=== PATIENT | male | born 1980 | race Caucasian/White ===

== ENCOUNTER 2022-11-16 10:36 | Inpatient (IN) ==
[2022-11-16] MEDS ORDERED: SODIUM CHLORIDE 0.9% 1000ML 1,000 ML IV SCH (11:27)
[2022-11-16 12:42] LABS: Basophils # (auto) 0.03 K/uL (0-0.2); Basophils % (auto) 0.7 %; Eosinophils % (auto) 2.5 %; Hematocrit (blood only) 40.1 % (42.0-52.0); Hemoglobin 13.7 g/dl (14.0-18.0); Immature Granulocytes # (auto) 0.03 K/uL (0.01-0.20); Immature Granulocytes % (auto) 0.7 %; Lymphocytes % (auto) 34.4 %; Mean Corpuscular Hemoglobin 29.7 pg (25.0-34.0); Mean Corpuscular Hgb Conc 34.2 g/dL (32.0-36.0); Mean Platelet Volume 9.6 fL (9.4-12.4); Monocytes # (auto) 0.44 K/uL (0.11-0.59); Monocytes % (auto) 10.8 %; Neutrophils # (auto) 2.07 K/uL (1.40-6.50); Neutrophils % (auto) 50.9 %; Platelet Count 165 K/uL (130-400); RDW Coefficient of Variation 13.5 % (11.5-14.5); RDW Standard Deviation 41.9 fL (36.4-46.3); Red Blood Count 4.61 M/uL (4.70-6.10); White Blood Count 4.07 K/ul (4.8-10.8)
[2022-11-16 12:59] LABS: BUN Creatinine Ratio 8.9 (10-20); Bilirubin Direct 0.1 mg/dl (0-0.2); Bilirubin,Total 0.5 mg/dl (0.2-1.0); Calcium 9.2 mg/dl (8.6-10.3); Creatinine Clr Calc Pharmacy 164.9 ml/min; Est GFR (African American) 129.3 ml/min; Est GFR (Non-African American) 111.5 ml/min; Magnesium 2.1 mg/dl (1.7-2.4); Potassium 3.8 mmol/L (3.5-5.1); Total Protein 7.7 gm/dl (6.0-8.3)
[2022-11-16 13:05] LABS: Troponin I High Sensitivity 4.5 pg/ml (0-20)
[2022-11-16 13:11] LABS: INR 1.1 (0.9-1.1); Prothrombin Time 11.9 Seconds (9.0-12.0)
[2022-11-16] MEDS ORDERED: VANCOMYCIN HCL 2,500 MG in SODIUM CHLORIDE 0.9% 500 ML IV ONE (13:15)
[2022-11-16] MEDS ORDERED: CEFEPIME 20 ML IV ONE (13:15)
[2022-11-16] MEDS ORDERED: OPTIRAY 320 500ml IV ONE (13:41)
--- NOTE | 2022-11-16 13:57 | CT Scan Report ---
UNENHANCED CT OF THE BRAIN; CT VENOGRAM OF THE BRAIN CLINICAL HISTORY: Headache. Bacteremia. COMPARISON STUDY: No priors. TECHNIQUE: Unenhanced axial CT scan of the brain is performed from the vertex to the skull base. Subs equently, following the IV administration of 115 cc of Optiray [address] venogram of the brain is perf ormed. 3-D MIPS images are created and assessed. IV contrast was administered without complication. A dose lowering technique was utilized adhering to the principles of ALARA. FINDINGS: Brain parenchyma: The brain parenchyma is normal in appearance. There is no hemorrhage, mass effect, or evidence of acute territorial ischemia by CT criteria. There is no evidence of enhancing mass lesi on on the postcontrast images. Lowe-white matter differentiation is preserved. No extra-axial fluid c ollection is seen. Ventricles, sulci, cisterns: Normal in configuration. Venous sinuses: There is no evidence of venous sinus thrombosis. The superior sagittal sinus is paten t, as are the transverse and sigmoid sinuses. Imaged portions of the internal jugular veins are clear . The inferior sagittal sinus and straight sinus are clear. Intracranial vasculature: The intracranial arteries are patent at the skull base. Calvarium: Unremarkable. Sinuses and mastoids: Retention cysts within the maxillary antra measure up to 12 mm. The paranasal s inuses are otherwise clear. The mastoid air cells are well pneumatized. Orbits: The bony orbits are intact. Orbital contents are normal as visualized. IMPRESSION: 1. No acute intracranial abnormality. 2. Normal CT venogram of the brain. ACT 112: Negative or not required by law. Electronically signed by: Nils Baldwin M.D. 11/16/2022 1:55 PM
--- NOTE | 2022-11-16 14:07 | XRay Report ---
SINGLE VIEW CHEST CLINICAL HISTORY: Sepsis FINDINGS: An AP, portable, upright chest radiograph is obtained. No prior studies are available for c omparison at the time of dictation. The cardiomediastinal silhouette is top normal for projection. Th ere is mild elevation of the right hemidiaphragm and bibasilar atelectasis. No airspace consolidation or pleural effusion is identified. No pneumothorax is seen. The bony thorax is grossly intact. IMPRESSION: No active disease in the chest. ACT 112: Negative or not required by law. Electronically signed by: Nils Baldwin M.D. 11/16/2022 2:05 PM
--- NOTE | 2022-11-16 14:09 | Emergency Department Note ---
Impression & Plan Bacteremia, Intravenous drug abuse, Intermittent fever, Mediastinal lymphadenopathy, Cellulitis of clavicular region ED Provider Note NAME: KAYODE MAGALLON AGE: 42 SEX: M ARRIVES VIA: Walk-In INFORMANT: Patient ED PROVIDER(S): Bartolo Hobbs MD CHIEF COMPLAINT: Bacteremia, referred PLAN: Disposition: Admit MEDICAL DECISION MAKING: The patient is a 42-year-old gentleman with a past medical history of IV drug abuse who presents to the emergency department for reevaluation after he was called back due to 1 out of 4 positive blood cultures from his emergency department visit on 11/13 in the setting of having 4/4 positive blood cultures for bacillus species from an emergency department visit at [facility] on 11/11. The patient had unremarkable CT imaging of the abdomen pelvis at [facility] and here on his recent visit. He had a leukocytosis of 14,000 on Friday however had no leukocytosis on 11/13 at our facility. The patient reports he has had fluctuating symptoms of abdominal pain, chest pain, shortness of breath, nausea and fevers lasting up to a week over the past several weeks. He reports he did relapse and has been using IV drugs where he injected in the left side of his neck several weeks ago. Per review of records and the patient's knowledge he has not been treated been treated with antibiotics. On arrival the patient is well-appearing in no acute distress, afebrile stable vital signs. Small ~1-2 cm area of ecchymosis of the left lower neck without surrounding erythema. No crepitus. EKG without overt acute ischemia. CXR negative for acute cardiopulmonary process. WBC 4K nonspecific. H/H similar to prior. Platelets within normal limits. Chemistry without metabolic acidosis. Electrolytes and LFTs unremarkable. La ctic acid 1.0, within normal limits. High-sensitivity troponin 4.5, within normal limits. Procalcitonin is nonelevated. COVID-19 RNA, DICK test was negative. Repeat blood cultures obtained and the patient was treated empirically with cefepime and vancomycin. CT imaging pending. Case was discussed with Dr. Alaniz, [facility] hospitalist, who will evaluate the patient for admission following CT results. Subsequently, CT of the head and CT venogram of the head negative for acute or maladies. CT soft tissue neck demonstrates small 2 cm ill-defined subcutaneous infiltration which correlates to the patient's injection site. CTA of the chest negative for PE or pneumonia but does demonstrate nonspecific mediastinal and hilar lymphadenopathy. Splenomegaly is noted. Further management per admitting team. Triage Nursing notes reviewed and agree them. Prior/outside medical records reviewed Vital Signs: reviewed Differential diagnosis: Viral syndrome, otitis, pharyngitis, pneumonia, influenza, meningitis, urinary tract infection, sepsis, bacteremia, as well as other pathologies. ER treatment provided: See below. Diagnostics interpreted by me: ECG: Normal sinus rhythm, 61 bpm, LVH, nonspecific T wave abnormality, no overt ST elevation or depression, QTc 438, cures 70 Cardiac Monitoring: An order for continuous cardiac monitoring was placed and demonstrated Normal sinus rhythm, 61 bpm, no ectopy. Laboratory studies: See below Imaging studies: See below Consultation(s): Case was discussed with Dr. Alaniz, [facility] hospitalist, who will evaluate the patient for admission. HPI: The patient is a 42-year-old gentleman with a past medical history of IV drug abuse who presents to the emergency department for reevaluation after he was called back due to 1 out of 4 positive blood cultures from his emergency department visit on 11/13 in the setting of having 4/4 positive blood cultures for bacillus species from an emergency department visit at [facility] on 11/11. The patient had unremarkable CT imaging of the abdomen pelvis at [facility] and here on his recent visit. He had a leukocytosis of 14,000 on Friday however had no leukocytosis on 11/13 at our facility. The patient reports he has had fluctuating symptoms of abdominal pain, chest pain, shortness of breath, nausea and fevers lasting up to a week over the past several weeks. He reports he did relapse and has been using IV drugs where he injected in the left side of his neck several weeks ago. Per review of records and the patient's knowledge he has not been treated been treated with antibiotics. ROS: See above HPI for pertinent positives & negatives. A total of 10 systems reviewed and were otherwise negative. VITALS:See Below PHYSICAL EXAMINATION: GENERAL: Awake, alert, well-appearing, in no distress HENT: Normocephalic, atraumatic. Oropharynx unremarkable. EYES: Normal conjunctiva. Sclera non-icteric. NECK: Supple. No nuchal rigidity. FROM. No JVD. Small 1 cm area of ecchymosis of the left lower neck without surrounding erythema. RESPIRATORY: Clear to auscultation. CARDIAC: Regular rate, normal rhythm. Extremities warm and well perfused. Pulses equal. ABDOMEN: Soft, non-distended. No tenderness to palpation. No rebound or guarding . No masses. RECTAL: Deferred. MUSCULOSKELETAL: Chest examination reveals no tenderness. The back is symmetrical on inspection without obvious abnormality. There is no CVA tenderness to palpation. No joint edema. LOWER EXTREMITIES: Calves are equal size bilaterally and non-tender. No edema. No discoloration. NEURO: Normal sensorium. No sensory or motor deficits noted. SKIN: No rash or jaundice noted. ED COURSE: Critical Care: I have personally spent greater than 35 minutes of critical care time in the direct management of this patient. This includes bedside care, interpretation of diagnostic studies, and testing, discussion with consultants, patient, and family members, and other required patient management activities. This 35 minutes is in excess of all separately billable procedures. Bartolo Hobbs MD Past Med/Surg History Medical History IV drug abuse Family History Other Family history non-contributory Social History Smoking Status: Former smoker Tobacco Type: Smokeless Tobacco (Dip or Chew) Do You Dip or Chew Tobacco: Yes; Hx Alcohol Use: No Hx Substance Use: Yes Substance Use Type Other:: Sporadic marijuana use Preferred Language: Surinamese Transition Mgr Rn Required: No Beliefs That Will Affect Care: None Current Living Situation: Alone Other Information That Helps Us Care for You: No Feels Safe at Home: Yes Assistive Devices: None Allergies Allergies Allergy/AdvReac Type Severity Reaction Status Date / Time ciprofloxacin [From Cipro] Allergy Unknown Unverified 11/16/22 13:43 Home Meds Home Medications Medication Instructions Recorded Confirmed methadone 40 mg soluble tablet 130 mg PO DAILY 11/13/22 11/16/22 apixaban 5 mg tablet (Eliquis) 5 mg PO BID 11/16/22 11/16/22 famotidine 40 mg tablet 40 mg PO HS 11/16/22 11/16/22 gabapentin 300 mg capsule 300 mg PO TID 11/16/22 11/16/22 paroxetine HCl 40 mg tablet 40 mg PO DAILY 11/16/22 11/16/22 trazodone 100 mg tablet 100 mg PO HS 11/16/22 11/16/22 Results & Data (ED) Vital Signs Vital Signs - 24 hr 11/16/22 11:00 11/16/22 12:04 11/16/22 13:11 Temperature 36.0 C L Temperature Source Temporal Artery Scan Pulse Rate 73 64 Pulse Rate [Apical] 54 L Pulse Rhythm [Apical] Regular Pulse Strength [Apical] Normal Respiratory Rate 20 20 Respiratory Effort / Characteristics Non-Labored Spontaneous Non-Labored Respiratory Depth Normal Normal Respiratory Pattern Regular Blood Pressure 155/94 H Blood Pressure [Right Arm] 130/83 Blood Pressure Mean 114 Blood Pressure Mean [Right Arm] 98 Pulse Oximetry 95 96 Oxygen Delivery Method Room Air Room Air Sepsis Recent Fever Within 48 Hours No Sepsis New/Unexplained Change in Mental Status No Sepsis Action Taken by Nursing No Action Required 11/16/22 13:19 11/16/22 12:04 11/16/22 12:30 Temperature Temperature Source Pulse Rate 66 60 Pulse Rate [Apical] Pulse Rhythm [Apical] Pulse Strength [Apical] Respiratory Rate 19 25 H Respiratory Effort / Characteristics Respiratory Depth Respiratory Pattern Blood Pressure Blood Pressure [Right Arm] Blood Pressure Mean Blood Pressure Mean [Right Arm] Pulse Oximetry 96 Oxygen Delivery Method Room Air Sepsis Recent Fever Within 48 Hours Sepsis New/Unexplained Change in Mental Status Sepsis Action Taken by Nursing 11/16/22 12:59 11/16/22 12:59 11/16/22 13:00 Temperature Temperature Source Pulse Rate 58 L 74 Pulse Rate [Apical] Pulse Rhythm [Apical] Pulse Strength [Apical] Respiratory Rate 20 13 Respiratory Effort / Characteristics Respiratory Depth Respiratory Pattern Blood Pressure 130/83 Blood Pressure [Right Arm] Blood Pressure Mean 98 Blood Pressure Mean [Right Arm] Pulse Oximetry Oxygen Delivery Method Sepsis Recent Fever Within 48 Hours Sepsis New/Unexplained Change in Mental Status Sepsis Action Taken by Nursing Laboratory Data Attestation: I reviewed the patient's lab results. 11/16/22 12:10 11/16/22 12:10 Lab Results 11/16/22 11/16/22 11/16/22 Range/Units 11:34 12:10 12:10 WBC 4.07 L (4.8-10.8) K/ul RBC 4.61 L (4.70-6.10) M/uL Hgb 13.7 L (14.0-18.0) g/dl Hct 40.1 L (42.0-52.0) % MCV 87.0 (80.0-100.0) fL MCH 29.7 (25.0-34.0) pg MCHC 34.2 (32.0-36.0) g/dL RDW Std Deviation 41.9 (36.4-46.3) fL RDW Coeff of Isabella 13.5 (11.5-14.5) % Plt Count 165 (130-400) K/uL MPV 9.6 (9.4-12.4) fL Immature Gran % (Auto) 0.7 % Neut % (Auto) 50.9 % Lymph % (Auto) 34.4 % Imperial % (Auto) 10.8 % Eos % (Auto) 2.5 % Baso % (Auto) 0.7 % Neut # (Auto) 2.07 (1.40-6.50) K/uL Lymph # (Auto) 1.40 (1.2-3.4) K/uL Imperial # (Auto) 0.44 (0.11-0.59) K/uL Eos # (Auto) 0.10 (0-0.50) K/uL Baso # (Auto) 0.03 (0-0.2) K/uL Immature Gran # (Auto) 0.03 (0.01-0.20) K/uL PT 11.9 (9.0-12.0) Seconds INR 1.1 (0.9-1.1) Sodium (136-145) mmol/L Potassium (3.5-5.1) mmol/L Chloride (98-107) mmol/L Carbon Dioxide (21-32) mmol/L Anion Gap (3-11) BUN (6-23) mg/dl Creatinine (0.6-1.4) mg/dl Est Cr Clr Drug Dosing ml/min Est GFR ( Amer) ml/min Est GFR (Non-Af Amer) ml/min BUN/Creatinine Ratio (10-20) Glucose (70-99(Fasting)) mg/dl Lactate (0.4-2.0) mmol/L Calcium (8.6-10.3) mg/dl Magnesium (1.7-2.4) mg/dl Total Bilirubin (0.2-1.0) mg/dl Direct Bilirubin (0-0.2) mg/dl AST (13-39) U/L ALT (7-52) U/L Alkaline Phosphatase (34-104) U/L Troponin I High Sens (0-20) pg/ml Total Protein (6.0-8.3) gm/dl Albumin (3.4-5.0) gm/dl Lipase (11-82) U/L Procalcitonin (0-0.5) ng/ml SARS-CoV-2, RNA, NAAT NEGATIVE (NEGATIVE) 11/16/22 11/16/22 11/16/22 Range/Units 12:10 12:10 12:10 WBC (4.8-10.8) K/ul RBC (4.70-6.10) M/uL Hgb (14.0-18.0) g/dl Hct (42.0-52.0) % MCV (80.0-100.0) fL MCH (25.0-34.0) pg MCHC (32.0-36.0) g/dL RDW Std Deviation (36.4-46.3) fL RDW Coeff of Isabella (11.5-14.5) % Plt Count (130-400) K/uL MPV (9.4-12.4) fL Immature Gran % (Auto) % Neut % (Auto) % Lymph % (Auto) % Imperial % (Auto) % Eos % (Auto) % Baso % (Auto) % Neut # (Auto) (1.40-6.50) K/uL Lymph # (Auto) (1.2-3.4) K/uL Imperial # (Auto) (0.11-0.59) K/uL Eos # (Auto) (0-0.50) K/uL Baso # (Auto) (0-0.2) K/uL Immature Gran # (Auto) (0.01-0.20) K/uL PT (9.0-12.0) Seconds INR (0.9-1.1) Sodium 139 (136-145) mmol/L Potassium 3.8 (3.5-5.1) mmol/L Chloride 104 (98-107) mmol/L Carbon Dioxide 28 (21-32) mmol/L Anion Gap 7 (3-11) BUN 7 (6-23) mg/dl Creatinine 0.79 (0.6-1.4) mg/dl Est Cr Clr Drug Dosing 164.9 ml/min Est GFR ( Amer) 129.3 ml/min Est GFR (Non-Af Amer) 111.5 ml/min BUN/Creatinine Ratio 8.9 L (10-20) Glucose 86 (70-99(Fasting)) mg/dl Lactate 1.0 (0.4-2.0) mmol/L Calcium 9.2 (8.6-10.3) mg/dl Magnesium 2.1 (1.7-2.4) mg/dl Total Bilirubin 0.5 (0.2-1.0) mg/dl Direct Bilirubin 0.1 (0-0.2) mg/dl AST 26 (13-39) U/L ALT 21 (7-52) U/L Alkaline Phosphatase 46 (34-104) U/L Troponin I High Sens 4.5 (0-20) pg/ml Total Protein 7.7 (6.0-8.3) gm/dl Albumin 4.0 (3.4-5.0) gm/dl Lipase 8 L (11-82) U/L Procalcitonin 0.07 (0-0.5) ng/ml SARS-CoV-2, RNA, NAAT (NEGATIVE) Administered Medications Apixaban (Apixaban 5 Mg Tablet) 5 mg PO BID TREVOR Stop: 12/16/22 20:59 Last Admin: 11/16/22 20:25 Dose: 5 mg Documented By: FERNANDO Famotidine (Famotidine 40 Mg Tablet) 40 mg PO HS TREVOR Stop: 12/16/22 20:59 Last Admin: 11/16/22 20:25 Dose: 40 mg Documented By: FERNANDO Gabapentin (Gabapentin 300 Mg Cap) 300 mg PO TID TREVOR Stop: 12/16/22 20:59 Last Admin: 11/16/22 20:25 Dose: 300 mg Documented By: FERNANDO Cefepime HCl 2,000 mg/ Syringe 20 mls @ 5 mls/min IV Q8H TREVOR; Protocol Stop: 11/30/22 20:59 Last Admin: 11/16/22 20:24 Dose: 5 mls/min Documented By: FERNANDO Vancomycin HCl 1,500 mg/ (Sodium Chloride) 530 mls @ 200 mls/hr IV Q12H TREVOR; Protocol Stop: 12/01/22 00:00 Last Admin: 11/16/22 23:43 Dose: 200 mls/hr Documented By: FERNANDO Trazodone HCl (Trazodone Hcl 100 Mg Tab) 100 mg PO HS TREVOR Stop: 12/16/22 20:59 Last Admin: 11/16/22 20:24 Dose: 100 mg Documented By: FERNANDO Discontinued Medications Sodium Chloride (Nss 1000ml) 1,000 mls @ 999 mls/hr IV .Q1H1M TREVOR Stop: 11/16/22 12:27 Last Infusion: 11/16/22 15:00 Dose: 0 mls/hr Documented By: Admin: 11/16/22 12:40 Dose: 999 mls/hr Documented By: YESENIA Vancomycin HCl 2,500 mg/ (Sodium Chloride) 550 mls @ 180 mls/hr IV NOW ONE Stop: 11/16/22 16:18 Last Infusion: 11/16/22 17:33 Dose: 0 mls/hr Documented By: Admin: 11/16/22 14:29 Dose: 180 mls/hr Documented By: YESENIA Cefepime HCl (Maxipime) 20 mls @ 5 mls/min IV NOW ONE Stop: 11/16/22 13:18 Last Admin: 11/16/22 13:15 Dose: 5 mls/min Documented By: JERADK Ioversol (Optiray 320 500ml) 115 ml IV ONCE ONE Stop: 11/16/22 13:42 Last Admin: 11/16/22 13:41 Dose: 115 ml Documented By: KAITLINK Imaging Data Radiologist's Impression: Chest X-Ray 11/16/22 11:26 SINGLE VIEW CHEST CLINICAL HISTORY: Sepsis FINDINGS: An AP, portable, upright chest radiograph is obtained. No prior studies are available for comparison at the time of dictation. The cardiomediastinal silhouette is top normal for projection. There is mild elevation of the right hemidiaphragm and bibasilar atelectasis. No airspace consolidation or pleural effusion is identified. No pneumothorax is seen. The bony thorax is grossly intact. IMPRESSION: No active disease in the chest. ACT 112: Negative or not required by law. Electronically signed by: Nils Baldwin M.D. 11/16/2022 2:05 PM Chest CTA 11/16/22 11:45 CT ANGIOGRAM OF THE CHEST CLINICAL HISTORY: Atypical chest pain. Bacteremia. COMPARISON STUDY: Chest x-ray performed the same day at 11/16/2022. TECHNIQUE: Following the IV administration of 115 cc of Optiray 320, CT angiogram of the chest was performed from the upper abdomen to the thoracic inlet utilizing the pulmonary embolus protocol. Images are reviewed in the axial, sagittal, and coronal planes. 3-D MIPS images are created and assessed. IV contrast was administered without complication. A dose lowering technique was utilized adhering to the principles of ALARA. There is streak artifact from the arms which could not be elevated above the chest. CT DOSE: 2392.10 mGy.cm FINDINGS: Thyroid: Imaged portions of the thyroid gland are normal in size and attenuation. Thoracic aorta: The thoracic aorta is normal in caliber and demonstrates standard 3-vessel arch anatomy. No dissection is seen. Pulmonary vasculature: The pulmonary trunk is normal in caliber. There are no filling defects identified in main, lobar, or segmental pulmonary branches to suggest pulmonary embolus. Heart: The heart is normal in size and without pericardial effusion. Lungs and pleural spaces: There is no airspace consolidation typical for pneumonia or pleural effusion. Dependent atelectasis is noted at the lung bases. The trachea and central airways are clear. Mediastinum: There are mildly enlarged mediastinal lymph nodes which measure up to 11 mm short axis. Chrystal: There are mildly enlarged hilar lymph nodes which measure up to 12 mm in short axis. Axillae: There is no axillary lymphadenopathy. Upper abdomen: The spleen is enlarged measuring 16.8 cm in length. There is a tiny hiatal hernia. The liver appears stated ptotic. Nodularity of the hepatic surface contour suggests morphologic change of cirrhosis. Skeletal structures: No lytic or blastic bony lesions are seen. IMPRESSION: 1. There is no evidence of pulmonary embolus in the main, lobar, or segmental pulmonary arteries. 2. There is no airspace consolidation or pleural effusion. 3. Mildly enlarged mediastinal and hilar lymph nodes are nonspecific. 4. Splenomegaly. 5. The liver is steatotic, and nodularity of the surface contour suggests morphologic change of cirrhosis. 6. Additional findings as above. ACT 112: Negative or not required by law. Electronically signed by: Nils Baldwin M.D. 11/16/2022 2:[address] 11/16/22 11:[address] OF THE BRAIN; CT VENOGRAM OF THE BRAIN CLINICAL HISTORY: Headache. Bacteremia. COMPARISON STUDY: No priors. TECHNIQUE: Unenhanced axial CT scan of the brain is performed from the vertex to the skull base. Subsequently, following the IV administration of 115 cc of Optiray [address] venogram of the brain is performed. 3-D MIPS images are created and assessed. IV contrast was administered without complication. A dose lowering technique was utilized adhering to the principles of ALARA. FINDINGS: Brain parenchyma: The brain parenchyma is normal in appearance. There is no hemorrhage, mass effect, or evidence of acute territorial ischemia by CT criteria. There is no evidence of enhancing mass lesion on the postcontrast images. Lowe-white matter differentiation is preserved. No extra-axial fluid collection is seen. Ventricles, sulci, cisterns: Normal in configuration. Venous sinuses: There is no evidence of venous sinus thrombosis. The superior sagittal sinus is patent, as are the transverse and sigmoid sinuses. Imaged portions of the internal jugular veins are clear. The inferior sagittal sinus and straight sinus are clear. Intracranial vasculature: The intracranial arteries are patent at the skull base. Calvarium: Unremarkable. Sinuses and mastoids: Retention cysts within the maxillary antra measure up to 12 mm. The paranasal sinuses are otherwise clear. The mastoid air cells are well pneumatized. Orbits: The bony orbits are intact. Orbital contents are normal as visualized. IMPRESSION: 1. No acute intracranial abnormality. 2. Normal CT venogram of the brain. ACT 112: Negative or not required by law. Electronically signed by: Nils Baldwin M.D. 11/16/2022 1:55 PM [address] Tissue Neck CT 11/16/22 11:45 CT SCAN OF THE NECK WITH IV CONTRAST CLINICAL HISTORY: Bacteremia. Left-sided neck pain. COMPARISON STUDY: No priors. TECHNIQUE: Following the IV administration of 115 cc of Optiray 320, CT scan of the soft tissues of the neck was performed from the skull base to the upper chest. Images are reviewed in the axial, sagittal, and coronal planes. IV contrast was administered without complication. A dose lowering technique was utilized adhering to the principles of ALARA. FINDINGS: Soft tissues: As a 2.2 cm ill-defined focus of subcutaneous soft tissue infiltration at the dermal surface in the left supraclavicular soft tissues deep to the marker at the site of interest. No organized fluid collection is identified. Pharynx: The pharyngeal soft tissues are normal as visualized. The pharyngeal airway is widely patent. There is no evidence of mass lesion. The vocal cords are symmetric. The parapharyngeal fat is well maintained. The prevertebral/retropharyngeal soft tissues are within normal limits. Epiglottis is normal. Lymphadenopathy: Mildly enlarged lymph nodes in the superior mediastinum measure up to 12 mm short axis. No cervical lymphadenopathy is seen Thyroid: Normal in size and attenuation. Salivary glands: The parotid and submandibular glands are within normal limits. Brain parenchyma: The visualized brain parenchyma at the skull base is normal in appearance. Vascular structures: The carotid arteries and jugular veins are patent bilaterally. Skeletal structures: Imaged portions of the calvarium at the skull base are within normal limits. The cervical spine appears intact. The patient is edentulous. Orbits: The bony orbits are intact. Orbital contents are normal as imaged. Sinuses and mastoids: Retention cysts in the maxillary antra measure up to 12 mm. The visualized paranasal sinuses are otherwise clear. The mastoid air cells are well pneumatized. Lung apices: Visualized apical lung parenchyma is clear. IMPRESSION: 1. There is a 2.2 cm focus of ill-defined subcutaneous infiltration at the dermal surface in the left supraclavicular soft tissues deep to the marker at the site of interest. This likely represents inflammation/cellulitis. Clinical correlation the required and clinical follow-up to resolution is recommended. 2. There is no drainable fluid collection. 3. The pharyngeal soft tissues are normal as imaged. 4. Mildly enlarged mediastinal lymph nodes are seen in the superior mediastinum. 5. Additional findings as above. ACT 112: Negative or not required by law. Electronically signed by: Nils Baldwin M.D. 11/16/2022 2:[address] 11/16/22 11:[address] OF THE BRAIN; CT VENOGRAM OF THE BRAIN CLINICAL HISTORY: Headache. Bacteremia. COMPARISON STUDY: No priors. TECHNIQUE: Unenhanced axial CT scan of the brain is performed from the vertex to the skull base. Subsequently, following the IV administration of 115 cc of Optiray [address] venogram of the brain is performed. 3-D MIPS images are created and assessed. IV contrast was administered without complication. A dose lowering technique was utilized adhering to the principles of ALARA. FINDINGS: Brain parenchyma: The brain parenchyma is normal in appearance. There is no hemorrhage, mass effect, or evidence of acute territorial ischemia by CT criteria. There is no evidence of enhancing mass lesion on the postcontrast images. Lowe-white matter differentiation is preserved. No extra-axial fluid collection is seen. Ventricles, sulci, cisterns: Normal in configuration. Venous sinuses: There is no evidence of venous sinus thrombosis. The superior sagittal sinus is patent, as are the transverse and sigmoid sinuses. Imaged portions of the internal jugular veins are clear. The inferior sagittal sinus and straight sinus are clear. Intracranial vasculature: The intracranial arteries are patent at the skull base. Calvarium: Unremarkable. Sinuses and mastoids: Retention cysts within the maxillary antra measure up to 12 mm. The paranasal sinuses are otherwise clear. The mastoid air cells are well pneumatized. Orbits: The bony orbits are intact. Orbital contents are normal as visualized. IMPRESSION: 1. No acute intracranial abnormality. 2. Normal CT venogram of the brain. ACT 112: Negative or not required by law. Electronically signed by: Nils Baldwin M.D. 11/16/2022 1:55 PM Discharge Plan Visit Data Chief Complaint: Referred by Doctor Stated Complaint: REF BY DOC ED Provider: Bartolo Hobbs Discharge Problem: Bacteremia, Intravenous drug abuse, Intermittent fever, Mediastinal lym phadenopathy, Cellulitis of clavicular region Patient Disposition: Admitted As Inpatient Discharge Instructions Interventions: ED Discharge Assessment Last Done: 11/16/22 16:28
--- NOTE | 2022-11-16 14:34 | CT Scan Report ---
CT ANGIOGRAM OF THE CHEST CLINICAL HISTORY: Atypical chest pain. Bacteremia. COMPARISON STUDY: Chest x-ray performed the same day at 11/16/2022. TECHNIQUE: Following the IV administration of 115 cc of Optiray 320, CT angiogram of the chest was pe rformed from the upper abdomen to the thoracic inlet utilizing the pulmonary embolus protocol. Images are reviewed in the axial, sagittal, and coronal planes. 3-D MIPS images are created and assessed. I V contrast was administered without complication. A dose lowering technique was utilized adhering to the principles of ALARA. There is streak artifact from the arms which could not be elevated above th e chest. CT DOSE: 2392.10 mGy.cm FINDINGS: Thyroid: Imaged portions of the thyroid gland are normal in size and attenuation. Thoracic aorta: The thoracic aorta is normal in caliber and demonstrates standard 3-vessel arch anato my. No dissection is seen. Pulmonary vasculature: The pulmonary trunk is normal in caliber. There are no filling defects identif ied in main, lobar, or segmental pulmonary branches to suggest pulmonary embolus. Heart: The heart is normal in size and without pericardial effusion. Lungs and pleural spaces: There is no airspace consolidation typical for pneumonia or pleural effusio n. Dependent atelectasis is noted at the lung bases. The trachea and central airways are clear. Mediastinum: There are mildly enlarged mediastinal lymph nodes which measure up to 11 mm short axis. Chrystal: There are mildly enlarged hilar lymph nodes which measure up to 12 mm in short axis. Axillae: There is no axillary lymphadenopathy. Upper abdomen: The spleen is enlarged measuring 16.8 cm in length. There is a tiny hiatal hernia. The liver appears stated ptotic. Nodularity of the hepatic surface contour suggests morphologic change o f cirrhosis. Skeletal structures: No lytic or blastic bony lesions are seen. IMPRESSION: 1. There is no evidence of pulmonary embolus in the main, lobar, or segmental pulmonary arteries. 2. There is no airspace consolidation or pleural effusion. 3. Mildly enlarged mediastinal and hilar lymph nodes are nonspecific. 4. Splenomegaly. 5. The liver is steatotic, and nodularity of the surface contour suggests morphologic change of cirrh osis. 6. Additional findings as above. ACT 112: Negative or not required by law. Electronically signed by: Nils Baldwin M.D. 11/16/2022 2:32 PM
--- NOTE | 2022-11-16 14:54 | CT Scan Report ---
CT SCAN OF THE NECK WITH IV CONTRAST CLINICAL HISTORY: Bacteremia. Left-sided neck pain. COMPARISON STUDY: No priors. TECHNIQUE: Following the IV administration of 115 cc of Optiray 320, CT scan of the soft tissues of gisela he neck was performed from the skull base to the upper chest. Images are reviewed in the axial, sagit yeimy, and coronal planes. IV contrast was administered without complication. A dose lowering techniq ue was utilized adhering to the principles of ALARA. FINDINGS: Soft tissues: As a 2.2 cm ill-defined focus of subcutaneous soft tissue infiltration at the dermal arellano rface in the left supraclavicular soft tissues deep to the marker at the site of interest. No organiz ed fluid collection is identified. Pharynx: The pharyngeal soft tissues are normal as visualized. The pharyngeal airway is widely patent . There is no evidence of mass lesion. The vocal cords are symmetric. The parapharyngeal fat is well maintained. The prevertebral/retropharyngeal soft tissues are within normal limits. Epiglottis is nor mal. Lymphadenopathy: Mildly enlarged lymph nodes in the superior mediastinum measure up to 12 mm short ax is. No cervical lymphadenopathy is seen Thyroid: Normal in size and attenuation. Salivary glands: The parotid and submandibular glands are within normal limits. Brain parenchyma: The visualized brain parenchyma at the skull base is normal in appearance. Vascular structures: The carotid arteries and jugular veins are patent bilaterally. Skeletal structures: Imaged portions of the calvarium at the skull base are within normal limits. The cervical spine appears intact. The patient is edentulous. Orbits: The bony orbits are intact. Orbital contents are normal as imaged. Sinuses and mastoids: Retention cysts in the maxillary antra measure up to 12 mm. The visualized para nasal sinuses are otherwise clear. The mastoid air cells are well pneumatized. Lung apices: Visualized apical lung parenchyma is clear. IMPRESSION: 1. There is a 2.2 cm focus of ill-defined subcutaneous infiltration at the dermal surface in the left supraclavicular soft tissues deep to the marker at the site of interest. This likely represents infl ammation/cellulitis. Clinical correlation the required and clinical follow-up to resolution is recomm ended. 2. There is no drainable fluid collection. 3. The pharyngeal soft tissues are normal as imaged. 4. Mildly enlarged mediastinal lymph nodes are seen in the superior mediastinum. 5. Additional findings as above. ACT 112: Negative or not required by law. Electronically signed by: Nils Baldwin M.D. 11/16/2022 2:51 PM
--- NOTE | 2022-11-16 16:41 | History and Physical Report ---
DATE OF ADMISSION: 11/16/2022. CHIEF COMPLAINT: Bacteremia. HISTORY OF PRESENT ILLNESS: This is a 42-year-old male with past medical history significant for history of depression, PTSD, anxiety, history of liver cirrhosis, history of hepatitis C, status post treatment in 2019, Patient says has cirrhosis from hepatitis C, obesity, portal hypertension, chronic back pain for several years on methadone currently. The patient says he had COVID and after that, he developed pulmonary embolism nine months ago, he is on Eliquis. Patient was called in because of the blood cultures showing bacteremia. He was in the [facility] on 11/11/2022 with abdominal pain and lot of vomiting. At that time in the ER, before his exam is completed, he was signed out AMA, but then he was threatening with suicidal treats and he was brought in back and psych was consulted and then it looks like he has calmed down and psychologist thinks that he was okay to discharge and the patient was discharged and was seen in the ER on 11/13/2022 in [facility] ER with abdominal pain, nausea, vomiting and for abnormal labs at [facility].. The symptoms started about a week ago and was also having fevers, no diarrhea, history of IV drug abuse. He said he took IV fentanyl about a few weeks back, and he was told in [facility] that he has elevated WBC and elevated lactic acid so he came back here in [facility]. Patient's labs were improved here, there is no white count, l and also lactic acid was normal to 1.8. Urinalysis negative. He also had a CT abdomen and pelvis done on 11/13/2022 when he was in the ER with no acute findings and he also had a CT abdomen and pelvis in [facility] on 11/11/2022, it was also, no acute findings were found and the patient was discharged.But he was called back today because his blood cultures, one of the bottle has been growing gram-positive bacilli here in [facility] cultures and his cultures drawn in the [facility] both bottles are growing bacillus species, not anthracis.. He says he was having some mild fever, but with the fluids currently fever has subsided. He still has abdominal pain over 5/10 in severity, radiating to the back and also chest discomfort going on for last 4-5 days. He has chronic back pain for several years. Denies any cough, no nausea, no vomiting. No diarrhea. No blood in the stool or black stools. No burning micturition, no blood in the urine, no swelling in the legs. Has some headache, no blurred visions.He was dizzy before going to [facility], but that is resolved now. No earache. Has some runny nose, no sore throat, no cough, no difficulty swallowing. Appetite is down, but he feels hungry and wants to eat now. He is hemodynamically stable, saturating okay on room air. ALLERGIES: CIPROFLOXACIN. PAST MEDICAL HISTORY: As mentioned above. PAST SURGICAL HISTORY: EGD. MEDICATIONS: The patient seems to be on Eliquis 5 mg p.o. b.i.d., famotidine 40 mg p.o. at bedtime, gabapentin 300 mg p.o. t.i.d., methadone 130 mg p.o. daily, paroxetine 40 mg p.o. daily, trazodone 100 mg p.o. at bedtime. FAMILY HISTORY: Significant for father has a pacemaker on blood thinners, lymphoma; mother has history of PE and DVT on long-term anticoagulation; maternal grandmother has melanoma. SOCIAL HISTORY: Single. Quit smoking in 1999, smoked 1 pack a day for 4 years. Denies drinking alcohol. Used IV fentanyl and cocaine. History of heroin and cocaine in the past. Recently had IV fentanyl a few weeks back. REVIEW OF SYSTEMS: As per HPI. Rest of review of systems is negative. PHYSICAL EXAMINATION: GENERAL: The patient is obese, not in acute distress. VITAL SIGNS: Temperature 36, pulse 54, respiratory rate 20, blood pressure 130/83, oxygen 96% on room air. HEENT: Pupils equal, round and reactive to light. Extraocular muscles intact, atraumatic. Oral mucosa moist. NECK: No JVD. No neck masses. CARDIOVASCULAR: S1 and S2 heard. Regular rate and rhythm. No murmur, no gallop. RESPIRATORY SYSTEM: Normal AP diameter. No accessory muscle use. No wheezing, no crackles. ABDOMEN: Soft, bowel sounds present, nontender, no distention. CENTRAL NERVOUS SYSTEM: Alert and oriented. Speech is clear. No facial droop. Obeys simple commands. EXTREMITIES: No edema, no erythema. LABORATORY DATA: WBC 4.07, hemoglobin 13.7, hematocrit 40.1, platelets 165. PT 11.9, INR 1.1. Sodium 139, potassium 3.8, chloride 104, bicarbonate 28, BUN 7, creatinine 0.7, serum glucose 86. Lactate 1, calcium 9.2, magnesium 2.1, total bilirubin 0.5, direct bilirubin 0.1, AST 26, ALT 21, alkaline phosphatase 46. Troponin I high sensitivity 4.5. Lipase 8. Procalcitonin 0.07. SARS-CoV-2 rapid test negative. IMAGING DATA: CT venogram of the brain: No acute intracranial abnormality, normal CT venogram of the brain. Soft tissue of the neck with IV contrast. There is a 2.2 cm focus of ill-defined subcutaneous infiltration on dermal surface of the left supraclavicular soft tissue deep to the marker at the site of interest. This likely represents inflammation and cellulitis. Clinical correlation is required. There is no drainable fluid collection. The pharyngeal soft tissue is normal. Mildly enlarged mediastinal lymph nodes. CT of the head without contrast, no acute findings. Chest CTA, mildly enlarged mediastinal hilar lymph nodes are nonspecific, no splenomegaly. Liver has possible cirrhosis. Chest x-ray, no active disease in the chest. EKG: Normal sinus rhythm at a rate of 61. Nonspecific T-wave abnormalities. QTc 438. ASSESSMENT AND PLAN: This is a 42-year-old male who presents with bacteremia. 1. Bacteremia and abdominal pain. He was having abdominal pain for last one week, [facility] on 11/11/22 and also came here on 11/13/2022. CT abdomen and pelvis done in the [facility] on 11/11/2022 and also on 11/13/2022 in [facility] were unremarkable. Currently, hemodynamically stable. Also has ongoing fevers, had mild temperature spike here. His white count elevation is resolved. Lactic acid is okay. His blood cultures done in [place] are growing bacillus, not anthracis. He had gram-positive bacilli on cultures done on 11/13/2022. ER started empirically on IV vancomycin and cefepime, which we will continue and IV vancomycin should cover the bacillus. Wll consult ID for further recommendations. We will also do an echocardiogram to rule out endocarditis. Follow the response. 2. History of pulmonary embolism, the patient said he had after COVID nine month ago, on Eliquis. We will continue. 3. Chronic back pain. The patient on gabapentin. The patient also on methadone. We will need to clarify the dose in the morning. We will hold until dose is clarified, the patient says 130 mg daily.He Says he gets methadone prescribed from [facility]. 4. History of depression, posttraumatic stress disorder, anxiety. Continue his paroxetine and trazodone. 5. History of chronic hepatitis C and liver cirrhosis, status post treatment for hepatitis C. 6. Deep venous thrombosis prophylaxis, on Eliquis. DISPOSITION: Closely monitor in the med tele. Expect to discharge home and follow with family doctor. Job ID: [id number] [facility] CENTERLisha
[2022-11-16] MEDS ORDERED: VANCOMYCIN CONSULT ACTIVE PRN (17:00)
[2022-11-16] MEDS ORDERED: POLYETHYLENE (MIRALAX) 17 GM PACK PO PRN (17:00)
[2022-11-16] MEDS ORDERED: VANCOMYCIN HCL 1,000 MG in SODIUM CHLORIDE 0.9% 250 ML IV SCH (17:00)
[2022-11-16] MEDS: CEFEPIME 2,000 MG in SYRINGE 0 ML IV SCH (20:24)
[2022-11-16] MEDS: traZODone HCL 100 MG TAB PO SCH (20:24)
[2022-11-16] MEDS: APIXABAN 5 MG TABLET PO SCH (20:25)
[2022-11-16] MEDS: GABAPENTIN 300 MG CAP PO SCH (20:25)
[2022-11-16] MEDS: FAMOTIDINE 40 MG TABLET PO SCH (20:25)
[2022-11-16] MEDS: VANCOMYCIN HCL 1,500 MG in SODIUM CHLORIDE 0.9% 500 ML IV SCH (23:43)
[2022-11-17] MEDS: CEFEPIME 2,000 MG in SYRINGE 0 ML IV SCH ×3 (04:42→19:55)
[2022-11-17 06:08] LABS: BUN Creatinine Ratio 8.5 (10-20); Calcium 8.8 mg/dl (8.6-10.3); Creatinine Clr Calc Pharmacy 159.3 ml/min; Est GFR (African American) 127.3 ml/min; Est GFR (Non-African American) 109.8 ml/min; Magnesium 2.1 mg/dl (1.7-2.4)
[2022-11-17 07:38] LABS: Appearance Urine Clear (Clear); Bilirubin Urine Negative (Negative); Blood Urine Negative (Negative); Color Urine Yellow; Glucose Urine UA Negative (Negative); Ketones Urine Negative (Negative); Leukocyte Esterase Urine Negative (Negative); Nitrite Urine Negative (Negative); Protein Urine Negative (Negative); Specific Gravity Urine 1.009 (1.000-1.030); Urobilinogen Urine Negative (Negative)
[2022-11-17 08:18] LABS: Basophils # (auto) 0.04 K/uL (0-0.2); Basophils % (auto) 0.9 %; Eosinophils # (auto) 0.18 K/uL (0-0.50); Eosinophils % (auto) 4.1 %; Hematocrit (blood only) 40.9 % (42.0-52.0); Hemoglobin 14.2 g/dl (14.0-18.0); Immature Granulocytes # (auto) 0.04 K/uL (0.01-0.20); Immature Granulocytes % (auto) 0.9 %; Lymphocytes # (auto) 2.07 K/uL (1.2-3.4); Lymphocytes % (auto) 46.7 %; Mean Corpuscular Hemoglobin 29.8 pg (25.0-34.0); Mean Corpuscular Hgb Conc 34.7 g/dL (32.0-36.0); Mean Corpuscular Volume 85.9 fL (80.0-100.0); Mean Platelet Volume 9.9 fL (9.4-12.4); Monocytes # (auto) 0.55 K/uL (0.11-0.59); Monocytes % (auto) 12.4 %; Neutrophils # (auto) 1.55 K/uL (1.40-6.50); Platelet Count 176 K/uL (130-400); RDW Coefficient of Variation 13.7 % (11.5-14.5); RDW Standard Deviation 42.7 fL (36.4-46.3); Red Blood Count 4.76 M/uL (4.70-6.10); White Blood Count 4.43 K/ul (4.8-10.8)
[2022-11-17] MEDS: PARoxetine HCL 20 MG TAB PO SCH (08:32)
[2022-11-17] MEDS: APIXABAN 5 MG TABLET PO SCH ×2 (08:32→19:55)
[2022-11-17] MEDS: GABAPENTIN 300 MG CAP PO SCH ×3 (08:32→19:56)
[2022-11-17] MEDS ORDERED: PATIENT'S OWN CONTROLLED MED 1 PO SCH (09:00)
[2022-11-17] MEDS: METHADONE ORAL SOLN 2 MG/ML PO SCH (10:05)
[2022-11-17] MEDS: PATIENT'S OWN CONTROLLED MED 1 PO SCH (10:06)
--- NOTE | 2022-11-17 10:15 | Pharmacy Report ---
Pharmacy PK ABX Note - Date of Service November 17, 2022 - Assessment and Plan Assessment 42 year old M receiving vancomycin and cefepime for treatment of bacteremia. Blood cultures drawn @ [facility] on 11/11 (+) in 11/26 for Bacillus spp not anthracis. 11/13 prelim BCx from our facility (+) Gram (+) bacilli in 08/28. Repeat blood cultures pending. Hx IVDA (recent relapse). Elevated PCT and WBC at initial visit @ OSH. Renal function stable. ID consulted. Day #2 of antimicrobial therapy. Plan Vancomycin * Loading dose: 2500 mg IV x 1 * Maintenance dose: 1500 mg IV every 12 hours * Regimen is predicted to achieve target AUC/CHRISTA of 400-600 mg/L.hr * Trough ordered for tomorrow prior to the 4th dose of this regimen. Given body habitus, pt at risk for accumulation. Will likely need more frequent levels. Pharmacy will continue to follow and will adjust dose/frequency as necessary. Thank you. Pharmacy has transitioned to AUC monitoring for vancomycin. AUC/CHRISTA is the preferred PK/PD target and is associated with decreased risk of nephrotoxicity compared to traditional trough targets.
--- NOTE | 2022-11-17 11:47 | Electrocardiogram Report ---
Test Reason : Blood Pressure : / mmHG Vent. Rate : 061 BPM Atrial Rate : 061 BPM P-R Int : 144 ms QRS Dur : 078 ms QT Int : 436 ms P-R-T Axes : 018 -12 -09 degrees QTc Int : 438 ms Normal sinus rhythm Voltage criteria for left ventricular hypertrophy Nonspecific T wave abnormality Abnormal ECG When compared with ECG of 13-NOV-2022 09:59, Borderline criteria for Anterior infarct are no longer Present Criteria for Inferior infarct are no longer Present Nonspecific T wave abnormality no longer evident in Lateral leads Confirmed by Yonas Crum ([id number]) on 11/17/2022 11:46:33 AM Referred By: Provider Outside Confirmed By:Yonas Crum
[2022-11-17 11:53] LABS: Amphetamines+Metham, Urine Neg (Neg); Barbiturates, Urine Neg (Neg); Benzodiazepine, Urine Neg (Neg); Cocaine, Urine Pos (Neg); MDMA (Ecstacy), Urine Neg (Neg); Methadone, Urine Pos (Neg); Opiate, Urine Neg (Neg); Phencyclidine, Urine Neg (Neg)
[2022-11-17] MEDS: VANCOMYCIN HCL 1,500 MG in SODIUM CHLORIDE 0.9% 500 ML IV SCH (12:16)
--- NOTE | 2022-11-17 13:32 | Hospitalist Progress Note ---
Date of Service November 17, 2022 Assessment & Plan (1) Bacteremia: Plan: Patient is a 42 yr old male who presents with bacteremia. Bacteremia -Outpatient Blood Culture grew bacillus, not anthracis --ECHO: Normal LV chamber size with mild concentric LVH. Normal LV systolic function, EF 60 to 65%. No segmental left ventricle wall motion abnormalities noted. Normal diastolic function. No significant valvular pathology. No valvular lesions consistent with endocarditis were visualized within the scope of the imaging modality. -Blood Cx from 11/13/22: 08/28: Gram-positive bacilli -Blood Cx 11/06/12L pending -Continue vancomycin, cefepime for now ID consulted Suspect Neck Cellulitis Vs Inflammation due to injection site Patient is admitted to injecting fentanyl 2 weeks ago -CT Neck:There is a 2.2 cm focus of ill-defined subcutaneous infiltration at the dermal surface in the left supraclavicular soft tissues deep to the marker at the site of interest. This likely represents inflammation/cellulitis. Clinical correlation the required and clinical follow-up to resolution is recommended. There is no drainable fluid collection. The pharyngeal soft tissues are normal as imaged. Mildly enlarged mediastinal lymph nodes are seen in the superior mediastinum. -Continue antibiotics as above Will await for ID input IV drug Abuse Admits to using IV fentanyl Urine Drug screen: Positive for methadone, cocaine, THC Follows with [facility] for Methadone Prescriptions Abdominal Pain/Nausea/Vomiting ? Secondary to drug abuse --ABD CT:Linear subcapsular density within segment 8 of the liver which extends for approximately 5 cm. In the absence of trauma, this favors a cleft. No perihepatic fluid. A hepatic laceration could appear similar if recent trauma. Close clinical follow-up is recommended. Cirrhosis with mild splenomegaly suggestive of portal hypertension. No bowel obstruction. No bowel wall thickening. Normal appendix. -Drug screen: Positive for methadone, THC, cocaine -- Currently asymptomatic --Tolerating diet Mediastinal lymphadenopathy Splenomegaly Unclear etiology Incidental finding on CT --CTA:There is no evidence of pulmonary embolus in the main, lobar, or segmental pulmonary arteries. There is no airspace consolidation or pleural effusion. Mildly enlarged mediastinal and hilar lymph nodes are nonspecific. Splenomegaly. The liver is steatotic, and nodularity of the surface contour suggests morpholog ic change of cirrhosis. --Further work/eval as outpatient H/O PE CTA as above Continue Eliquis Chronic back pain Continue gabapentin Also on methadone--need to clarify dose with [facility]. Depression Posttraumatic stress disorder Anxiety on paroxetine and trazodone H/O Hep C/Cirrhosis S/P treatment for hepatitis C DVT Px: on Eliquis Code Status Full Code Admission and Anticipated Discharge Date Admission Date: November 16, 2022 Subjective Patient is seen and examined at bedside States feeling well this morning Nausea, abd pain resolved Afebrile Denies any chest pain, dyspnea, dizziness No other complaints Review of Systems Review of Systems: All systems reviewed & are unremarkable except as noted in Subjective Physical Exam Physical Exam: Physical Exam: Vitals signs as noted above General Appearance:Obese, no apparent distress Head: normocephalic, Atraumatic Eyes: normal inspection, EOMI Neck: supple, Trachea midline, Left skin lesion, no erythema Respiratory/Chest: Normal breath sounds, CTA, No accessory muscle use Cardiovascular: S1, S2, No murmur Abdomen/GI:Soft, Non tender, Bowel sounds present Extremities/Musculoskeletal:normal inspection, no edema Neurologic/Psych:AAOX3, grossly no focal neurological deficits Skin: normal color, warm, +Tattoos Results & Data Results & Data Vital Signs (Past 12 Hours) Vital Signs Temp Pulse Pulse Resp BP Pulse Ox O2 Del Method 11/17/22 12:00 59 L 11/17/22 11:35 36.5 C 69 16 133/94 93 Room Air 11/17/22 08:07 59 L 11/17/22 07:49 36.5 C 57 L 14 141/88 H 98 Room Air 11/17/22 02:42 36.3 C L 55 L 15 140/85 95 Room Air Laboratory Results Short CBC 11/17/22 11/17/22 Range/Units 05:36 07:52 WBC Cancelled 4.43 L Hgb Cancelled 14.2 Hct Cancelled 40.9 L Plt Count Cancelled 176 BMP 11/17/22 05:36 Sodium 139 Potassium 4.0 Chloride 108 H Carbon Dioxide 25 BUN 7 Creatinine 0.82 Glucose 90 Calcium 8.8 Urine 11/17/22 Range/Units Unknown Urine Color Yellow Urine Appearance Clear (Clear) Urine pH 7.0 (4.5-7.5) Ur Specific [facility] 1.009 (1.000-1.030) Urine Protein Negative (Negative) Urine Glucose (UA) Negative (Negative)
[2022-11-17] MEDS: traZODone HCL 100 MG TAB PO SCH (19:55)
[2022-11-17] MEDS: FAMOTIDINE 40 MG TABLET PO SCH (19:56)
[2022-11-18] MEDS: VANCOMYCIN HCL 1,500 MG in SODIUM CHLORIDE 0.9% 500 ML IV SCH ×3 (00:40→23:42)
[2022-11-18] MEDS: CEFEPIME 2,000 MG in SYRINGE 0 ML IV SCH (05:32)
[2022-11-18] MEDS: APIXABAN 5 MG TABLET PO SCH ×2 (08:22→21:16)
[2022-11-18] MEDS: GABAPENTIN 300 MG CAP PO SCH ×3 (08:22→21:17)
[2022-11-18] MEDS: METHADONE ORAL SOLN 2 MG/ML PO SCH (08:22)
[2022-11-18] MEDS: PATIENT'S OWN CONTROLLED MED 1 PO SCH (08:23)
[2022-11-18] MEDS: PARoxetine HCL 20 MG TAB PO SCH (08:23)
[2022-11-18] MEDS ORDERED: VANCOMYCIN LEVEL ONE (11:00)
[2022-11-18 11:59] LABS: Hematocrit (blood only) 41.4 % (42.0-52.0); Hemoglobin 14.1 g/dl (14.0-18.0); Mean Corpuscular Hemoglobin 29.4 pg (25.0-34.0); Mean Corpuscular Hgb Conc 34.1 g/dL (32.0-36.0); Mean Corpuscular Volume 86.4 fL (80.0-100.0); Mean Platelet Volume 9.8 fL (9.4-12.4); Platelet Count 161 K/uL (130-400); RDW Coefficient of Variation 13.6 % (11.5-14.5); RDW Standard Deviation 41.8 fL (36.4-46.3); Red Blood Count 4.79 M/uL (4.70-6.10); White Blood Count 3.81 K/ul (4.8-10.8)
[2022-11-18 12:21] LABS: Calcium 9.4 mg/dl (8.6-10.3); Potassium 4.3 mmol/L (3.5-5.1)
[2022-11-18 12:27] LABS: BUN Creatinine Ratio 9.6 (10-20); Creatinine Clr Calc Pharmacy 179.1 ml/min; Est GFR (African American) 133.5 ml/min; Est GFR (Non-African American) 115.2 ml/min
--- NOTE | 2022-11-18 12:47 | Pharmacy Report ---
Pharmacy PK ABX Note - Date of Service November 18, 2022 - Assessment and Plan Assessment 42 year old M receiving vancomycin and cefepime for treatment of bacteremia. Blood cultures drawn @ [facility] on 11/11 (+) in 11/26 for Bacillus spp not anthracis. 11/13 prelim BCx from our facility (+) Gram (+) bacilli in 08/28. Repeat blood cultures pending. Hx IVDA (recent relapse). Elevated PCT and WBC at initial visit @ OSH. Renal function stable. ID consulted. Day #3 of antimicrobial therapy. Plan Vancomycin * Current regimen: 1500 mg IV every 12 hours * Trough level obtained 11/18/22 resulted as 13.5 mcg/mL. This is predicted to achieve target AUC/CHRISTA of 400-600 mg/L.hr * Predicted AUC at steady state: 471 mg/L.hr * Continue to 1500 mg IV every 12 hours * Repeat trough level ordered for: 11/20/22 Pharmacy will continue to follow and will adjust dose/frequency as necessary. Thank you. Pharmacy has transitioned to AUC monitoring for vancomycin. AUC/CHRISTA is the preferred PK/PD target and is associated with decreased risk of nephrotoxicity compared to traditional trough targets.
--- NOTE | 2022-11-18 17:28 | Hospitalist Progress Note ---
Date of Service November 18, 2022 Assessment & Plan (1) Bacteremia: Plan: Patient is a 42 yr old male who presents with bacteremia. Bacillus Bacteremia -Outpatient Blood Culture grew bacillus, not anthracis --ECHO: Normal LV chamber size with mild concentric LVH. Normal LV systolic function, EF 60 to 65%. No segmental left ventricle wall motion abnormalities noted. Normal diastolic function. No significant valvular pathology. No valvular lesions consistent with endocarditis were visualized within the scope of the imaging modality. -Blood Cx from 11/13/22: 08/28: Gram-positive bacilli -Blood Cx 11/06/12L pending -Patient deferred hepatitis, HIV screen (Patient states that he was tested 9 months ago which was negative for HIV and hepatitis) -Continue vancomycin--needs 7-day course of antibiotic therapy from first negative blood culture cefepime discontinued Appreciate ID Input Ultrasound of injection site ordered Suspect Neck Cellulitis Vs Inflammation due to injection site Patient is admitted to injecting fentanyl 2 weeks ago -CT Neck:There is a 2.2 cm focus of ill-defined subcutaneous infiltration at the dermal surface in the left supraclavicular soft tissues deep to the marker at the site of interest. This likely represents inflammation/cellulitis. Clinical correlation the required and clinical follow-up to resolution is recommended. There is no drainable fluid collection. The pharyngeal soft tissues are normal as imaged. Mildly enlarged mediastinal lymph nodes are seen in the superior mediastinum. -Continue antibiotics as above Appreciate ID input IV drug Abuse Admits to using IV fentanyl Urine Drug screen: Positive for methadone, cocaine, THC Follows with [facility] for Methadone Prescriptions Abdominal Pain/Nausea/Vomiting ? Secondary to drug abuse --ABD CT:Linear subcapsular density within segment 8 of the liver which extends for approximately 5 cm. In the absence of trauma, this favors a cleft. No perihepatic fluid. A hepatic laceration could appear similar if recent trauma. Close clinical follow-up is recommended. Cirrhosis with mild splenomegaly suggestive of portal hypertension. No bowel obstruction. No bowel wall thickening. Normal appendix. -Drug screen: Positive for methadone, THC, cocaine -- Currently asymptomatic --Tolerating diet Mediastinal lymphadenopathy Splenomegaly Unclear etiology Incidental finding on CT --CTA:There is no evidence of pulmonary embolus in the main, lobar, or segmental pulmonary arteries. There is no airspace consolidation or pleural effusion. Mildly enlarged mediastinal and hilar lymph nodes are nonspecific. Splenomegaly. The liver is steatotic, and nodularity of the surface contour suggests morphologic change of cirrhosis. --Further work/eval as outpatient H/O PE CTA as above Continue Eliquis Chronic back pain Continue gabapentin Also on methadone--need to clarify dose with [facility]. Depression Posttraumatic stress disorder Anxiety on paroxetine and trazodone H/O Hep C/Cirrhosis S/P treatment for hepatitis C DVT Px: on Eliquis Code Status Full Code Admission and Anticipated Discharge Date Admission Date: November 16, 2022 Subjective Patient is seen and examined at bedside Reports mild headache and feels tired Denies any chest pain, dyspnea, dizziness, nausea, abdominal pain No other complaints Review of Systems Review of Systems: All systems reviewed & are unremarkable except as noted in Subjective Physical Exam Physical Exam: Physical Exam: Vitals signs as noted above General Appearance:Obese, no apparent distress Head: normocephalic, Atraumatic Eyes: normal inspection, EOMI Neck: supple, Trachea midline, Left skin lesion, no erythema Respiratory/Chest: Normal breath sounds, CTA, No accessory muscle use Cardiovascular: S1, S2, No murmur Abdomen/GI:Soft, Non tender, Bowel sounds present Extremities/Musculoskeletal:normal inspection, no edema Neurologic/Psych:AAOX3, grossly no focal neurological deficits Skin: normal color, warm, +Tattoos Results & Data Results & Data Vital Signs (Past 12 Hours) Vital Signs Temp Pulse Pulse Resp BP Pulse Ox O2 Del Method 11/18/22 15:31 36.6 C 56 L 17 121/82 92 Room Air 11/18/22 10:50 36.9 C 64 18 132/90 95 Room Air 11/18/22 08:03 36.9 C 59 L 17 137/97 97 Room Air 11/18/22 07:00 66 Laboratory Results Short CBC 11/18/22 Range/Units 11:40 WBC 3.81 L (4.8-10.8) K/ul Hgb 14.1 (14.0-18.0) g/dl Hct 41.4 L (42.0-52.0) % Plt Count 161 (130-400) K/uL BMP 11/18/22 11:40 Sodium 138 Potassium 4.3 Chloride 104 Carbon Dioxide 29 BUN 7 Creatinine 0.73 Glucose 88 Calcium 9.4
[2022-11-18] MEDS: FAMOTIDINE 40 MG TABLET PO SCH (21:16)
[2022-11-18] MEDS: traZODone HCL 100 MG TAB PO SCH (21:17)
--- NOTE | 2022-11-19 07:32 | Ultrasound Report ---
US soft tissue head and neck CLINICAL HISTORY: Left side of neck--injection site R/O abscess COMPARISON STUDY: CT neck 11/16/2022. FINDINGS: Real-time sonographic imaging of the left supraclavicular region was performed with represe ntative images submitted. At the patient's area of interest there is an ill-defined hypoechoic subcut aneous area measuring approximately 12 x 11 x 7 mm. This corresponds to the recent CT abnormality. Th is abuts the adjacent vessels IMPRESSION: Redemonstration of a 12 x 11 x 7 mm ill-defined hypoechoic subcutaneous abnormality with in the left supraclavicular soft tissues. This appears to abut the adjacent vascular structures. This could represent an area of scarring or a soft tissue lesion. Follow-up recommended. ACT 112: Negative or not required by law. Electronically signed by: Mitchell Torrez M.D. 11/19/2022 7:31 AM
[2022-11-19] MEDS: PARoxetine HCL 20 MG TAB PO SCH (08:38)
[2022-11-19] MEDS: PATIENT'S OWN CONTROLLED MED 1 PO SCH (08:38)
[2022-11-19] MEDS: METHADONE ORAL SOLN 2 MG/ML PO SCH (08:38)
[2022-11-19] MEDS: GABAPENTIN 300 MG CAP PO SCH ×3 (08:38→20:54)
[2022-11-19] MEDS: APIXABAN 5 MG TABLET PO SCH ×2 (08:38→20:54)
[2022-11-19 09:22] LABS: Creatinine Clr Calc Pharmacy 183.6 ml/min; Est GFR (African American) 134.3 ml/min; Est GFR (Non-African American) 115.9 ml/min
[2022-11-19] MEDS: VANCOMYCIN HCL 1,500 MG in SODIUM CHLORIDE 0.9% 500 ML IV SCH (12:53)
--- NOTE | 2022-11-19 16:43 | Hospitalist Progress Note ---
Date of Service November 19, 2022 Assessment & Plan (1) Bacteremia: Plan: Patient is a 42 yr old male who presents with bacteremia. Bacillus Bacteremia -Outpatient Blood Culture grew bacillus, not anthracis --ECHO: Normal LV chamber size with mild concentric LVH. Normal LV systolic function, EF 60 to 65%. No segmental left ventricle wall motion abnormalities noted. Normal diastolic function. No significant valvular pathology. No valvular lesions consistent with endocarditis were visualized within the scope of the imaging modality. --Ultrasound of IV drug injection site:Redemonstration of a 12 x 11 x 7 mm ill- defined hypoechoic subcutaneous abnormality within the left supraclavicular soft tissues. This appears to abut the adjacent vascular structures. This could represent an area of scarring or a soft tissue lesion. Follow-up recommended. -Blood Cx from 11/13/22: 08/28: Bacillus species not anthracis -Blood Cx 11/16/22: No growth to date -Patient deferred hepatitis, HIV screen (Patient states that he was tested 9 months ago which was negative for HIV and hepatitis) -Continue vancomycin--needs 7-day course of antibiotic therapy from first negative blood culture cefepime discontinued Appreciate ID Input Continue current management Suspect Neck Cellulitis Vs Inflammation due to injection site Patient is admitted to injecting fentanyl 2 weeks ago -CT Neck:There is a 2.2 cm focus of ill-defined subcutaneous infiltration at the dermal surface in the left supraclavicular soft tissues deep to the marker at the site of interest. This likely represents inflammation/cellulitis. Clinical correlation the required and clinical follow-up to resolution is recommended. There is no drainable fluid collection. The pharyngeal soft tissues are normal as imaged. Mildly enlarged mediastinal lymph nodes are seen in the superior mediastinum. -Continue antibiotics as above Appreciate ID input IV drug Abuse Admits to using IV fentanyl Urine Drug screen: Positive for methadone, cocaine, THC Follows with [facility] for Methadone Prescriptions Abdominal Pain/Nausea/Vomiting ? Secondary to drug abuse --ABD CT:Linear subcapsular density within segment 8 of the liver which extends for approximately 5 cm. In the absence of trauma, this favors a cleft. No perihepatic fluid. A hepatic laceration could appear similar if recent trauma. Close clinical follow-up is recommended. Cirrhosis with mild splenomegaly suggestive of portal hypertension. No bowel obstruction. No bowel wall thickening. Normal appendix. -Drug screen: Positive for methadone, THC, cocaine -- Currently asymptomatic --Resolved Mediastinal lymphadenopathy Splenomegaly Unclear etiology Incidental finding on CT --CTA:There is no evidence of pulmonary embolus in the main, lobar, or segmental pulmonary arteries. There is no airspace consolidation or pleural effusion. Mildly enlarged mediastinal and hilar lymph nodes are nonspecific. Splenomegaly. The liver is steatotic, and nodularity of the surface contour suggests morphologic change of cirrhosis. --Further work/eval as outpatient H/O PE CTA as above Continue Eliquis Chronic back pain Continue gabapentin Also on methadone--need to clarify dose with [facility]. Depression Posttraumatic stress disorder Anxiety on paroxetine and trazodone H/O Hep C/Cirrhosis S/P treatment for hepatitis C DVT Px: on Eliquis Code Status Full Code Admission and Anticipated Discharge Date Admission Date: November 16, 2022 Subjective Patient is seen and examined at bedside No new complaints Headache improved Denies any chest pain, dyspnea, dizziness, nausea, abdominal pain Review of Systems Review of Systems: All systems reviewed & are unremarkable except as noted in Subjective Physical Exam Physical Exam: Physical Exam: Vitals signs as noted above General Appearance:Obese, no apparent distress Head: normocephalic, Atraumatic Eyes: normal inspection, EOMI Neck: supple, Trachea midline, Left skin lesion, no erythema Respiratory/Chest: Normal breath sounds, CTA, No accessory muscle use Cardiovascular: S1, S2, No murmur Abdomen/GI:Soft, Non tender, Bowel sounds present Extremities/Musculoskeletal:normal inspection, no edema Neurologic/Psych:AAOX3, grossly no focal neurological deficits Skin: normal color, warm, +Tattoos Results & Data Results & Data Vital Signs (Past 12 Hours) Vital Signs Temp Pulse Pulse Resp BP BP Pulse Ox 11/19/22 11:47 36.5 C 79 19 143/110 H 96 11/19/22 08:15 36.8 C 69 16 135/82 96 11/19/22 07:00 67 11/19/22 04:48 36.7 C 64 18 134/90 95 O2 Del Method 11/19/22 11:47 Room Air 11/19/22 08:15 Room Air 11/19/22 07:00 11/19/22 04:48 Room Air Laboratory Results BMP 11/19/22 08:26 Creatinine 0.72
[2022-11-19] MEDS: traZODone HCL 100 MG TAB PO SCH ×2 (20:54→21:35)
[2022-11-19] MEDS: FAMOTIDINE 40 MG TABLET PO SCH (20:54)
[2022-11-20] MEDS: VANCOMYCIN HCL 1,500 MG in SODIUM CHLORIDE 0.9% 500 ML IV SCH ×2 (00:36→12:27)
[2022-11-20] MEDS: GABAPENTIN 300 MG CAP PO SCH ×3 (09:04→21:38)
[2022-11-20] MEDS: APIXABAN 5 MG TABLET PO SCH ×2 (09:04→21:38)
[2022-11-20] MEDS: PARoxetine HCL 20 MG TAB PO SCH (09:04)
[2022-11-20] MEDS: METHADONE ORAL SOLN 2 MG/ML PO SCH (09:45)
[2022-11-20] MEDS: PATIENT'S OWN CONTROLLED MED 1 PO SCH (09:45)
[2022-11-20 09:53] LABS: Hematocrit (blood only) 37.1 % (42.0-52.0); Hemoglobin 12.7 g/dl (14.0-18.0); Mean Corpuscular Hemoglobin 29.9 pg (25.0-34.0); Mean Corpuscular Hgb Conc 34.2 g/dL (32.0-36.0); Mean Corpuscular Volume 87.3 fL (80.0-100.0); Mean Platelet Volume 10.6 fL (9.4-12.4); Platelet Count 116 K/uL (130-400); RDW Coefficient of Variation 13.7 % (11.5-14.5); RDW Standard Deviation 43.3 fL (36.4-46.3); Red Blood Count 4.25 M/uL (4.70-6.10); White Blood Count 3.08 K/ul (4.8-10.8)
[2022-11-20 09:58] LABS: BUN Creatinine Ratio 12.3 (10-20); Blood Urea Nitrogen 9 mg/dl (6-23); Calcium 9.1 mg/dl (8.6-10.3); Carbon Dioxide 27 mmol/L (21-32); Chloride 105 mmol/L (98-107); Creatinine Clr Calc Pharmacy 181.1 ml/min; Est GFR (African American) 133.5 ml/min; Est GFR (Non-African American) 115.2 ml/min; Glucose 86 mg/dl (70-99(Fasting))
[2022-11-20 10:22] LABS: Cocaine, Urine 230 ng/mL (<100); Marijuana Quant, GCMS Urine 42 ng/mL (<5); Methadone, Ur Metabolite 2930 ng/mL (<100)
[2022-11-20] MEDS ORDERED: VANCOMYCIN LEVEL ONE (11:30)
--- NOTE | 2022-11-20 15:06 | Pharmacy Report ---
Pharmacy PK ABX Note - Date of Service November 20, 2022 - Assessment and Plan Assessment 42 year old M receiving vancomycin and cefepime for treatment of bacteremia. Blood cultures drawn @ [facility] on 11/11 (+) in 11/26 for Bacillus spp not anthracis. 11/13 prelim BCx from our facility (+) Gram (+) bacilli in 08/28. Repeat blood cultures pending. Hx IVDA (recent relapse). Elevated PCT and WBC at initial visit @ OSH. Renal function stable. ID consulted. Day #5 of antimicrobial therapy. Plan Vancomycin * Random level today came back at ~10 mcg/ml - this is associated with AUC/CHRISTA of ~422 mg/L/hr * Plan to increase dosing to 1750 mg iv q 12 hrs to target higher AUC/CHRISTA for bacteremia treatment. This dosing is associated with a trough level of ~14 mcg/ml and can be associated with toxicity of 9% * Renal function remains stable, will recheck level in another 2-3 days to reassess Pharmacy will continue to follow and will adjust dose/frequency as necessary. Thank you.
--- NOTE | 2022-11-20 16:58 | Hospitalist Progress Note ---
Date of Service November 20, 2022 Assessment & Plan (1) Bacteremia: Plan: Patient is a 42 yr old male who presents with bacteremia. Bacillus Bacteremia -Outpatient Blood Culture grew bacillus, not anthracis --ECHO: Normal LV chamber size with mild concentric LVH. Normal LV systolic function, EF 60 to 65%. No segmental left ventricle wall motion abnormalities noted. Normal diastolic function. No significant valvular pathology. No valvular lesions consistent with endocarditis were visualized within the scope of the imaging modality. --Ultrasound of IV drug injection site:Redemonstration of a 12 x 11 x 7 mm ill- defined hypoechoic subcutaneous abnormality within the left supraclavicular soft tissues. This appears to abut the adjacent vascular structures. This could represent an area of scarring or a soft tissue lesion. Follow-up recommended. -Blood Cx from 11/13/22: 08/28: Bacillus species not anthracis -Blood Cx 11/16/22: No growth to date -Patient deferred hepatitis, HIV screen (Patient states that he was tested 9 months ago which was negative for HIV and hepatitis) -Continue vancomycin--needs 7-day course of antibiotic therapy from first negative blood culture cefepime discontinued Appreciate ID Input Continue IV vancomycin to complete 7-day course Suspect Neck Cellulitis Vs Inflammation due to injection site Patient is admitted to injecting fentanyl 2 weeks ago -CT Neck:There is a 2.2 cm focus of ill-defined subcutaneous infiltration at the dermal surface in the left supraclavicular soft tissues deep to the marker at the site of interest. This likely represents inflammation/cellulitis. Clinical correlation the required and clinical follow-up to resolution is recommended. There is no drainable fluid collection. The pharyngeal soft tissues are normal as imaged. Mildly enlarged mediastinal lymph nodes are seen in the superior mediastinum. -Continue antibiotics as above Appreciate ID input IV drug Abuse Admits to using IV fentanyl Urine Drug screen: Positive for methadone, cocaine, THC Follows with [facility] for Methadone Prescriptions Abdominal Pain/Nausea/Vomiting ? Secondary to drug abuse --ABD CT:Linear subcapsular density within segment 8 of the liver which extends for approximately 5 cm. In the absence of trauma, this favors a cleft. No perihepatic fluid. A hepatic laceration could appear similar if recent trauma. Close clinical follow-up is recommended. Cirrhosis with mild splenomegaly suggestive of portal hypertension. No bowel obstruction. No bowel wall thickening. Normal appendix. -Drug screen: Positive for methadone, THC, cocaine -- Currently asymptomatic --Resolved Mediastinal lymphadenopathy Splenomegaly Unclear etiology Incidental finding on CT --CTA:There is no evidence of pulmonary embolus in the main, lobar, or segmental pulmonary arteries. There is no airspace consolidation or pleural effusion. Mildly enlarged mediastinal and hilar lymph nodes are nonspecific. Splenomegaly. The liver is steatotic, and nodularity of the surface contour suggests morphologic change of cirrhosis. --Further work/eval as outpatient H/O PE CTA as above Continue Eliquis Chronic back pain Continue gabapentin Also on methadone--need to clarify dose with [facility]. Depression Posttraumatic stress disorder Anxiety on paroxetine and trazodone H/O Hep C/Cirrhosis S/P treatment for hepatitis C DVT Px: on Eliquis Code Status Full Code Admission and Anticipated Discharge Date Admission Date: November 16, 2022 Subjective Patient is seen and examined at bedside Comfortably sleeping during my encounter Eager to get discharged No new complaints Denies any chest pain, dyspnea, dizziness, nausea, abdominal pain Review of Systems Review of Systems: All systems reviewed & are unremarkable except as noted in Subjective Physical Exam Physical Exam: Physical Exam: Vitals signs as noted above General Appearance:Obese, no apparent distress Head: normocephalic, Atraumatic Eyes: normal inspection, EOMI Neck: supple, Trachea midline, Left skin lesion, no erythema Respiratory/Chest: Normal breath sounds, CTA, No accessory muscle use Cardiovascular: S1, S2, No murmur Abdomen/GI:Soft, Non tender, Bowel sounds present Extremities/Musculoskeletal:normal inspection, no edema Neurologic/Psych:AAOX3, grossly no focal neurological deficits Skin: normal color, warm, +Tattoos Results & Data Results & Data Vital Signs (Past 12 Hours) Vital Signs Temp Pulse Resp BP Pulse Ox O2 Del Method 11/20/22 14:59 36.5 C 57 L 17 129/85 96 Room Air 11/20/22 07:42 36.4 C L 91 H 17 133/86 95 Room Air Laboratory Results Short CBC 11/20/22 11/20/22 Range/Units 07:47 08:32 WBC Cancelled 3.08 L Hgb Cancelled 12.7 L Hct Cancelled 37.1 L Plt Count Cancelled 116 L BMP 11/20/22 11/20/22 07:47 11:58 Sodium TNP 138 Potassium TNP 4.0 Chloride 105 Carbon Dioxide 27 BUN 9 Creatinine 0.73 Glucose 86 Calcium 9.1
[2022-11-20] MEDS: FAMOTIDINE 40 MG TABLET PO SCH (21:38)
[2022-11-20] MEDS: traZODone HCL 100 MG TAB PO SCH (21:38)
[2022-11-20] MEDS: VANCOMYCIN HCL 1,750 MG in SODIUM CHLORIDE 0.9% 500 ML IV SCH (21:39)
[2022-11-21 08:01] LABS: Creatinine Clr Calc Pharmacy 200.3 ml/min; Est GFR (African American) 139.2 ml/min; Est GFR (Non-African American) 120.1 ml/min
[2022-11-21] MEDS: METHADONE ORAL SOLN 2 MG/ML PO SCH (08:31)
[2022-11-21] MEDS: APIXABAN 5 MG TABLET PO SCH ×2 (08:31→21:35)
[2022-11-21] MEDS: PARoxetine HCL 20 MG TAB PO SCH (08:31)
[2022-11-21] MEDS: GABAPENTIN 300 MG CAP PO SCH ×3 (08:31→21:35)
[2022-11-21] MEDS: PATIENT'S OWN CONTROLLED MED 1 PO SCH (08:32)
[2022-11-21] MEDS: VANCOMYCIN HCL 1,750 MG in SODIUM CHLORIDE 0.9% 500 ML IV SCH ×2 (10:52→21:36)
--- NOTE | 2022-11-21 16:33 | Hospitalist Progress Note ---
Date of Service November 21, 2022 Assessment & Plan (1) Bacteremia: Plan: Patient is a 42 yr old male who presents with bacteremia. Bacillus Bacteremia -Outpatient Blood Culture grew bacillus, not anthracis --ECHO: Normal LV chamber size with mild concentric LVH. Normal LV systolic function, EF 60 to 65%. No segmental left ventricle wall motion abnormalities noted. Normal diastolic function. No significant valvular pathology. No valvular lesions consistent with endocarditis were visualized within the scope of the imaging modality. --Ultrasound of IV drug injection site:Redemonstration of a 12 x 11 x 7 mm ill- defined hypoechoic subcutaneous abnormality within the left supraclavicular soft tissues. This appears to abut the adjacent vascular structures. This could represent an area of scarring or a soft tissue lesion. Follow-up recommended. -Blood Cx from 11/13/22: 08/28: Bacillus species not anthracis -Blood Cx 11/16/22: No growth to date -Patient deferred hepatitis, HIV screen (Patient states that he was tested 9 months ago which was negative for HIV and hepatitis) -Continue vancomycin--needs 7-day course of antibiotic therapy from first negative blood culture cefepime discontinued Appreciate ID Input Continue IV vancomycin to complete 7-day course Repeat blood cultures negative, plan to discharge after completion of IV antibiotic course Suspect Neck Cellulitis Vs Inflammation due to injection site Patient is admitted to injecting fentanyl 2 weeks ago -CT Neck:There is a 2.2 cm focus of ill-defined subcutaneous infiltration at the dermal surface in the left supraclavicular soft tissues deep to the marker at the site of interest. This likely represents inflammation/cellulitis. Clinical correlation the required and clinical follow-up to resolution is recommended. There is no drainable fluid collection. The pharyngeal soft tissues are normal as imaged. Mildly enlarged mediastinal lymph nodes are seen in the superior mediastinum. -Continue antibiotics as above Appreciate ID input IV drug Abuse Admits to using IV fentanyl Urine Drug screen: Positive for methadone, cocaine, THC Follows with [facility] for Methadone Prescriptions Abdominal Pain/Nausea/Vomiting ? Secondary to drug abuse --ABD CT:Linear subcapsular density within segment 8 of the liver which extends for approximately 5 cm. In the absence of trauma, this favors a cleft. No perihepatic fluid. A hepatic laceration could appear similar if recent trauma. Close clinical follow-up is recommended. Cirrhosis with mild splenomegaly suggestive of portal hypertension. No bowel obstruction. No bowel wall thickening. Normal appendix. -Drug screen: Positive for methadone, THC, cocaine -- Currently asymptomatic --Resolved Mediastinal lymphadenopathy Splenomegaly Unclear etiology Incidental finding on CT --CTA:There is no evidence of pulmonary embolus in the main, lobar, or segmental pulmonary arteries. There is no airspace consolidation or pleural effusion. Mildly enlarged mediastinal and hilar lymph nodes are nonspecific. Splenomegaly. The liver is steatotic, and nodularity of the surface contour suggests morphologic change of cirrhosis. --Further work/eval as outpatient H/O PE CTA as above Continue Eliquis Chronic back pain Continue gabapentin Also on methadone--need to clarify dose with [facility]. Depression Posttraumatic stress disorder Anxiety on paroxetine and trazodone H/O Hep C/Cirrhosis S/P treatment for hepatitis C DVT Px: on Eliquis Code Status Full Code Admission and Anticipated Discharge Date Admission Date: November 16, 2022 Subjective Patient is seen and examined at bedside Offers no complaints Denies any chest pain, dyspnea, dizziness, nausea, abdominal pain on IV antibiotics Review of Systems Review of Systems: All systems reviewed & are unremarkable except as noted in Subjective Physical Exam Physical Exam: Physical Exam: Vitals signs as noted above General Appearance:Obese, no apparent distress Head: normocephalic, Atraumatic Eyes: normal inspection, EOMI Neck: supple, Trachea midline, Left skin lesion, no erythema Respiratory/Chest: Normal breath sounds, CTA, No accessory muscle use Cardiovascular: S1, S2, No murmur Abdomen/GI:Soft, Non tender, Bowel sounds present Extremities/Musculoskeletal:normal inspection, no edema Neurologic/Psych:AAOX3, grossly no focal neurological deficits Skin: normal color, warm, +Tattoos Results & Data Results & Data Vital Signs (Past 12 Hours) Vital Signs Temp Pulse Resp BP Pulse Ox O2 Del Method 11/21/22 15:20 37.2 C 94 H 17 127/81 97 Room Air 11/21/22 07:35 36.3 C L 87 18 114/77 96 Room Air Laboratory Results [facility] 11/21/22 07:05 Creatinine 0.66
[2022-11-21] MEDS: FAMOTIDINE 40 MG TABLET PO SCH (21:35)
[2022-11-21] MEDS: traZODone HCL 100 MG TAB PO SCH (21:35)
[2022-11-22] MEDS: GABAPENTIN 300 MG CAP PO SCH ×3 (07:43→20:46)
[2022-11-22] MEDS: PARoxetine HCL 20 MG TAB PO SCH (07:43)
[2022-11-22] MEDS: APIXABAN 5 MG TABLET PO SCH ×2 (07:44→20:45)
[2022-11-22] MEDS: PATIENT'S OWN CONTROLLED MED 1 PO SCH (07:47)
[2022-11-22] MEDS: METHADONE ORAL SOLN 2 MG/ML PO SCH (07:47)
[2022-11-22 08:37] LABS: Hematocrit (blood only) 36.4 % (42.0-52.0); Hemoglobin 11.9 g/dl (14.0-18.0); Mean Corpuscular Hemoglobin 29.8 pg (25.0-34.0); Mean Corpuscular Hgb Conc 32.7 g/dL (32.0-36.0); Mean Platelet Volume 10.3 fL (9.4-12.4); Platelet Count 120 K/uL (130-400); RDW Coefficient of Variation 13.8 % (11.5-14.5); RDW Standard Deviation 46.2 fL (36.4-46.3); White Blood Count 3.18 K/ul (4.8-10.8)
[2022-11-22 08:55] LABS: BUN Creatinine Ratio 10.1 (10-20); Calcium 8.7 mg/dl (8.6-10.3); Creatinine Clr Calc Pharmacy 191.6 ml/min; Est GFR (African American) 136.7 ml/min; Est GFR (Non-African American) 117.9 ml/min; Potassium 3.6 mmol/L (3.5-5.1)
--- NOTE | 2022-11-22 09:01 | Hospitalist Progress Note ---
Date of Service November 22, 2022 Assessment & Plan (1) Bacteremia: Plan: Patient is a 42 yr old IVDU who presents with bacteremia. Bacillus Bacteremia -Outpatient Blood Culture grew bacillus, not anthracis --ECHO: Normal LV chamber size with mild concentric LVH. Normal LV systolic function, EF 60 to 65%. No segmental left ventricle wall motion abnormalities noted. Normal diastolic function. No significant valvular pathology. No valvular lesions consistent with endocarditis were visualized within the scope of the imaging modality. --Ultrasound of IV drug injection site:Redemonstration of a 12 x 11 x 7 mm ill- defined hypoechoic subcutaneous abnormality within the left supraclavicular soft tissues. This appears to abut the adjacent vascular structures. This could represent an area of scarring or a soft tissue lesion. Follow-up recommended. -Blood Cx from 11/13/22: 08/28: Bacillus species not anthracis -Blood Cx 11/16/22: No growth to date -Patient deferred hepatitis, HIV screen (Patient states that he was tested 9 months ago which was negative for HIV and hepatitis) -Continue vancomycin--needs 7-day course of antibiotic therapy from first negative blood culture cefepime discontinued Per Jose ID, bacillus may be related to translocation of gut flores with ongoing GI symptoms vs contaminant vs true infection Continue IV vancomycin to complete 7-day course-->amended through text message to this provider that EPIC note updated and recommends vanc x 14 days Repeat blood cultures negative Suspect Neck Cellulitis Vs Inflammation due to injection site Patient is admitted to injecting fentanyl 2 weeks ago -CT Neck:There is a 2.2 cm focus of ill-defined subcutaneous infiltration at the dermal surface in the left supraclavicular soft tissues deep to the marker at the site of interest. This likely represents inflammation/cellulitis. Clinical correlation the required and clinical follow-up to resolution is recommended. There is no drainable fluid collection. The pharyngeal soft tissues are normal as imaged. Mildly enlarged mediastinal lymph nodes are seen in the superior mediastinum. -Continue antibiotics as above IV drug Abuse Admits to using IV fentanyl Urine Drug screen: Positive for methadone, cocaine, THC Follows with [facility] for Methadone Prescriptions Encourage outpatient counseling/rehab for addiction Abdominal Pain/Nausea/Vomiting ? Secondary to drug abuse --ABD CT:Linear subcapsular density within segment 8 of the liver which extends for approximately 5 cm. In the absence of trauma, this favors a cleft. No perihepatic fluid. A hepatic laceration could appear similar if recent trauma. Close clinical follow-up is recommended. Cirrhosis with mild splenomegaly suggestive of portal hypertension. No bowel obstruction. No bowel wall thickening. Normal appendix. -Drug screen: Positive for methadone, THC, cocaine -- Currently asymptomatic --Resolved and he is tolerating regular food. Mediastinal lymphadenopathy Splenomegaly Unclear etiology Incidental finding on CT --CTA:There is no evidence of pulmonary embolus in the main, lobar, or segmental pulmonary arteries. There is no airspace consolidation or pleural effusion. Mildly enlarged mediastinal and hilar lymph nodes are nonspecific. Splenomegaly. The liver is steatotic, and nodularity of the surface contour suggests morphologic change of cirrhosis. --Further work/eval as outpatient H/O PE CTA as above Continue Eliquis Chronic back pain, no new issues. Continue gabapentin Also on methadone--need to clarify dose with [facility]. Depression Posttraumatic stress disorder Anxiety on paroxetine and trazodone H/O Hep C/Cirrhosis S/P treatment for hepatitis C DVT Px: on Eliquis Code Status Full Code Sravanthi Shepherd DO [facility] Hospitalist Admission and Anticipated Discharge Date Admission Date: November 16, 2022 Subjective 42 yo M admitted with endocarditis Doing well ambulating around the hallways ID updated me regarding recs and wants to treat this as a "true" infection This was discussed wtih the patient as well as a home health option US guided line in place in RUE denies fevers, chest pain, SOB or other issues. Review of Systems Review of Systems: All systems were reviewed and negative except as indicated above. Physical Exam Physical Exam: CONSTITUTIONAL: morbid obesity, vitals as above, generally well-appearing, NAD EYES: normal conjunctivae, no scleral icterus ENT: external ear and nose normal, MMM NECK: trachea midline, small wound site on left neck base that is closed and doesn't appear infected. Slightly discolored. Prior injection site. RESPIRATORY: clear to auscultation bilaterally, no crackles, rales or wheezes, normal respiratory effort CARDIOVASCULAR: regular rate and rhythm, S1 and 2 heard without murmurs, gallops or rubs, no JVD, no peripheral edema CHEST: inspection of chest was normal GASTROINTESTINAL: soft, nontender, ND, no guarding MUSCULOSKELETAL: strength 5/5 throughout, head is normocephalic and atraumatic, neck supple, normal palpation of chest wall without tenderness SKIN: warm and dry NEUROLOGIC: CN 2-12 grossly intact, no sensory deficit, normal cognition, normal speech, no tremor PSYCHIATRIC: alert cooperative and oriented to person, place and time. Euthymic mood, makes good eye contact, language grossly intact, recent and remote memory grossly intact. Results & Data Results & Data Vital Signs (Past 12 Hours) Vital Signs Temp Pulse Resp BP Pulse Ox O2 Del Method 11/22/22 07:26 36.6 C 64 17 111/73 99 Room Air Laboratory Results Short CBC 11/22/22 Range/Units 07:57 WBC 3.18 L (4.8-10.8) K/ul Hgb 11.9 L (14.0-18.0) g/dl Hct 36.4 L (42.0-52.0) % Plt Count 120 L (130-400) K/uL BMP 11/22/22 07:57 Sodium 139 Potassium 3.6 Chloride 105 Carbon Dioxide 30 BUN 7 Creatinine 0.69 Glucose 129 H Calcium 8.7 Medications Administered Current Inpatient Medications Apixaban (Apixaban 5 Mg Tablet) 5 mg PO BID [facility] Stop: 12/16/22 20:59 Last Admin: 11/22/22 07:44 Dose: 5 mg Famotidine (Famotidine 40 Mg Tablet) 40 mg PO HS [facility] Stop: 12/16/22 20:59 Last Admin: 11/21/22 21:35 Dose: 40 mg Gabapentin (Gabapentin 300 Mg Cap) 300 mg PO TID [facility] Stop: 12/16/22 20:59 Last Admin: 11/22/22 07:43 Dose: 300 mg Vancomycin HCl 1,750 mg/ (Sodium Chloride) 535 mls @ 200 mls/hr IV Q12H [facility]; Protocol Stop: 12/01/22 21:59 Last Infusion: 11/22/22 01:43 Dose: Infused Methadone HCl (Methadone Oral Soln 2 Mg/Ml) 130 mg PO DAILY [facility] Stop: 12/01/22 09:59 Last Admin: 11/22/22 07:47 Dose: 130 mg Miscellaneous Information (Vancomycin Consult Active) 1 each N/A UD PRN PRN Reason: Consult Stop: 12/16/22 16:59 Non-Formulary Medication (Patient's Own Controlled Med 1) 1 each PO DAILY [facility] Stop: 12/01/22 09:59 Last Admin: 11/22/22 07:47 Dose: 65 ml Paroxetine HCl (Paroxetine Hcl 20 Mg Tab) 40 mg PO DAILY [facility] Stop: 12/17/22 08:59 Last Admin: 11/22/22 07:43 Dose: 40 mg Polyethylene Glycol (Polyethylene (Miralax) 17 Gm Pack) 17 gm PO DAILY PRN PRN Reason: Constipation Stop: 12/16/22 16:59 Trazodone HCl (Trazodone Hcl 100 Mg Tab) 100 mg PO HS [facility] Stop: 12/16/22 20:59 Last Admin: 11/21/22 21:35 Dose: 50 mg
[2022-11-22] MEDS: VANCOMYCIN HCL 1,750 MG in SODIUM CHLORIDE 0.9% 500 ML IV SCH ×2 (10:25→21:16)
[2022-11-22] MEDS: traZODone HCL 100 MG TAB PO SCH (20:45)
[2022-11-22] MEDS: FAMOTIDINE 40 MG TABLET PO SCH (20:45)
[2022-11-23] MEDS ORDERED: ACETAMINOPHEN 325 MG TAB PO PRN (00:05)
[2022-11-23 06:30] LABS: Hematocrit (blood only) 34.1 % (42.0-52.0); Hemoglobin 11.4 g/dl (14.0-18.0); Mean Corpuscular Hgb Conc 33.4 g/dL (32.0-36.0); Mean Corpuscular Volume 89.7 fL (80.0-100.0); Mean Platelet Volume 10.2 fL (9.4-12.4); Platelet Count 125 K/uL (130-400); RDW Coefficient of Variation 13.9 % (11.5-14.5); RDW Standard Deviation 46.1 fL (36.4-46.3); White Blood Count 3.27 K/ul (4.8-10.8)
[2022-11-23] MEDS: GABAPENTIN 300 MG CAP PO SCH ×3 (08:22→20:47)
[2022-11-23] MEDS: APIXABAN 5 MG TABLET PO SCH ×2 (08:22→20:48)
[2022-11-23] MEDS: METHADONE ORAL SOLN 2 MG/ML PO SCH (08:23)
[2022-11-23] MEDS: PATIENT'S OWN CONTROLLED MED 1 PO SCH (08:23)
[2022-11-23] MEDS: PARoxetine HCL 20 MG TAB PO SCH (08:23)
[2022-11-23] MEDS: VANCOMYCIN HCL 1,750 MG in SODIUM CHLORIDE 0.9% 500 ML IV SCH ×2 (08:54→21:17)
--- NOTE | 2022-11-23 10:22 | Hospitalist Progress Note ---
Date of Service November 23, 2022 Assessment & Plan (1) Bacteremia: Plan: Patient is a 42 yr old IVDU who presents with bacteremia. Bacillus Bacteremia -Outpatient Blood Culture grew bacillus, not anthracis --ECHO: Normal LV chamber size with mild concentric LVH. Normal LV systolic function, EF 60 to 65%. No segmental left ventricle wall motion abnormalities noted. Normal diastolic function. No significant valvular pathology. No valvular lesions consistent with endocarditis were visualized within the scope of the imaging modality. --Ultrasound of IV drug injection site:Redemonstration of a 12 x 11 x 7 mm ill- defined hypoechoic subcutaneous abnormality within the left supraclavicular soft tissues. This appears to abut the adjacent vascular structures. This could represent an area of scarring or a soft tissue lesion. Follow-up recommended. -Blood Cx from 11/13/22: 08/28: Bacillus species not anthracis -Blood Cx 11/16/22: No growth to date -Patient deferred hepatitis, HIV screen (Patient states that he was tested 9 months ago which was negative for HIV and hepatitis) -Continue vancomycin--needs 7-day course of antibiotic therapy from first negative blood culture cefepime discontinued Per Jose ID, bacillus may be related to translocation of gut flores with ongoing GI symptoms vs contaminant vs true infection Continue IV vancomycin to complete 7-day course-->amended through text message to this provider that EPIC note updated and recommends vanc x 14 days outpatient blood cultures 4/4 bottles on 11/11 came up positive for Bacillus species, not anthracis Repeat blood cultures negative and echo with no evident of vegetation, he remaines fever free and clinically appears well will continue vanc for another week to complete 14 days total course. Requested case management manager to help with setting up vanc iv in the outpatient setting. Suspect Neck Cellulitis Vs Inflammation due to injection site Patient is admitted to injecting fentanyl 2 weeks ago -CT Neck:There is a 2.2 cm focus of ill-defined subcutaneous infiltration at the dermal surface in the left supraclavicular soft tissues deep to the marker at the site of interest. This likely represents inflammation/cellulitis. Clinical correlation the required and clinical follow-up to resolution is recommended. There is no drainable fluid collection. The pharyngeal soft tissues are normal as imaged. Mildly enlarged mediastinal lymph nodes are seen in the superior mediastinum. -Continue antibiotics as above IV drug Abuse Admits to using IV fentanyl Urine Drug screen: Positive for methadone, cocaine, THC Follows with [facility] for Methadone Prescriptions Encourage outpatient counseling/rehab for addiction Abdominal Pain/Nausea/Vomiting ? Secondary to drug abuse --ABD CT:Linear subcapsular density within segment 8 of the liver which extends for approximately 5 cm. In the absence of trauma, this favors a cleft. No perihepatic fluid. A hepatic laceration could appear similar if recent trauma. Close clinical follow-up is recommended. Cirrhosis with mild splenomegaly suggestive of portal hypertension. No bowel obstruction. No bowel wall thickening. Normal appendix. -Drug screen: Positive for methadone, THC, cocaine -- Currently asymptomatic --Resolved and he is tolerating regular food. Mediastinal lymphadenopathy Splenomegaly Unclear etiology Incidental finding on CT --CTA:There is no evidence of pulmonary embolus in the main, lobar, or segmental pulmonary arteries. There is no airspace consolidation or pleural effusion. Mildly enlarged mediastinal and hilar lymph nodes are nonspecific. Splenomegaly. The liver is steatotic, and nodularity of the surface contour suggests morphologic change of cirrhosis. --Further work/eval as outpatient H/O PE CTA as above Continue Eliquis Chronic back pain, no new issues. Continue gabapentin Also on methadone--need to clarify dose with [facility]. Depression Posttraumatic stress disorder Anxiety on paroxetine and trazodone H/O Hep C/Cirrhosis S/P treatment for hepatitis C DVT Px: on Eliquis Code Status Full Code OK to dc home as soon as he can receive IV abx from Home Richa Shepherd DO [facility] Hospitalist Admission and Anticipated Discharge Date Admission Date: November 16, 2022 Subjective 42 yo M admitted with endocarditis Doing well ambulating around the hallways ID updated me regarding recs and wants to treat this as a "true" infection This was discussed wtih the patient as well as a home health option US guided line in place in RUE denies fevers, chest pain, SOB or other issues. we are now just waiting on the abx delivery service to be set up Review of Systems Review of Systems: All systems were reviewed and negative except as indicated above. Physical Exam 2 Physical Exam: CONSTITUTIONAL: morbid obesity, vitals as above, generally well-appearing, NAD EYES: normal conjunctivae, no scleral icterus ENT: external ear and nose normal, MMM NECK: trachea midline, small wound site on left neck base that is closed and doesn't appear infected. Slightly discolored. Prior injection site. RESPIRATORY: clear to auscultation bilaterally, no crackles, rales or wheezes, normal respiratory effort CARDIOVASCULAR: regular rate and rhythm, S1 and 2 heard without murmurs, gallops or rubs, no JVD, no peripheral edema CHEST: inspection of chest was normal GASTROINTESTINAL: soft, nontender, ND, no guarding MUSCULOSKELETAL: strength 5/5 throughout, head is normocephalic and atraumatic, neck supple, normal palpation of chest wall without tenderness SKIN: warm and dry NEUROLOGIC: CN 2-12 grossly intact, no sensory deficit, normal cognition, normal speech, no tremor PSYCHIATRIC: alert cooperative and oriented to person, place and time. Euthymic mood, makes good eye contact, language grossly intact, recent and remote memory grossly intact. Results & Data Results & Data Vital Signs (Past 12 Hours) Vital Signs Temp Pulse Resp BP Pulse Ox O2 Del Method 11/23/22 07:35 36.7 C 72 18 135/82 94 Room Air 11/23/22 07:25 Room Air Laboratory Results Short CBC 11/23/22 Range/Units 06:04 WBC 3.27 L (4.8-10.8) K/ul Hgb 11.4 L (14.0-18.0) g/dl Hct 34.1 L (42.0-52.0) % Plt Count 125 L (130-400) K/uL Medications Administered Current Inpatient Medications Acetaminophen (Acetaminophen 325 Mg Tab) 650 mg PO Q4H PRN PRN Reason: Pain or Fever Stop: 12/23/22 00:04 Last Admin: 11/23/22 00:11 Dose: 650 mg Apixaban (Apixaban 5 Mg Tablet) 5 mg PO BID [facility] Stop: 12/16/22 20:59 Last Admin: 11/23/22 08:22 Dose: 5 mg Famotidine (Famotidine 40 Mg Tablet) 40 mg PO HS [facility] Stop: 12/16/22 20:59 Last Admin: 11/22/22 20:45 Dose: 40 mg Gabapentin (Gabapentin 300 Mg Cap) 300 mg PO TID [facility] Stop: 12/16/22 20:59 Last Admin: 11/23/22 08:22 Dose: 300 mg Vancomycin HCl 1,750 mg/ (Sodium Chloride) 535 mls @ 200 mls/hr IV Q12H [facility]; Protocol Stop: 11/30/22 21:59 Last Admin: 11/23/22 08:54 Dose: 200 mls/hr Methadone HCl (Methadone Oral Soln 2 Mg/Ml) 130 mg PO DAILY [facility] Stop: 12/01/22 09:59 Last Admin: 11/23/22 08:23 Dose: 130 mg Miscellaneous Information (Vancomycin Consult Active) 1 each N/A UD PRN PRN Reason: Consult Stop: 11/23/22 13:00 Non-Formulary Medication (Patient's Own Controlled Med 1) 1 each PO DAILY [facility] Stop: 12/01/22 09:59 Last Admin: 11/23/22 08:23 Dose: Not Given Paroxetine HCl (Paroxetine Hcl 20 Mg Tab) 40 mg PO DAILY [facility] Stop: 12/17/22 08:59 Last Admin: 11/23/22 08:23 Dose: 40 mg Polyethylene Glycol (Polyethylene (Miralax) 17 Gm Pack) 17 gm PO DAILY PRN PRN Reason: Constipation Stop: 12/16/22 16:59 Trazodone HCl (Trazodone Hcl 100 Mg Tab) 100 mg PO [facility] Stop: 12/16/22 20:59 Last Admin: 11/22/22 20:45 Dose: 50 mg
[2022-11-23] MEDS: traZODone HCL 100 MG TAB PO SCH (20:48)
[2022-11-23] MEDS: FAMOTIDINE 40 MG TABLET PO SCH (20:48)
--- NOTE | 2022-11-24 08:12 | Hospitalist Progress Note ---
Date of Service November 24, 2022 Assessment & Plan (1) Bacteremia: Plan: Patient is a 42 yr old IVDU who presents with bacteremia. Bacillus Bacteremia -Outpatient Blood Culture grew bacillus, not anthracis --ECHO: Normal LV chamber size with mild concentric LVH. Normal LV systolic function, EF 60 to 65%. No segmental left ventricle wall motion abnormalities noted. Normal diastolic function. No significant valvular pathology. No valvular lesions consistent with endocarditis were visualized within the scope of the imaging modality. --Ultrasound of IV drug injection site:Redemonstration of a 12 x 11 x 7 mm ill- defined hypoechoic subcutaneous abnormality within the left supraclavicular soft tissues. This appears to abut the adjacent vascular structures. This could represent an area of scarring or a soft tissue lesion. Follow-up recommended. -Blood Cx from 11/13/22: 08/28: Bacillus species not anthracis -Blood Cx 11/16/22: No growth to date -Patient deferred hepatitis, HIV screen (Patient states that he was tested 9 months ago which was negative for HIV and hepatitis) -Continue vancomycin--needs 7-day course of antibiotic therapy from first negative blood culture cefepime discontinued Per [employer] ID, bacillus may be related to translocation of gut flores with ongoing GI symptoms vs contaminant vs true infection Continue IV vancomycin to complete 7-day course-->amended through text message to this provider that EPIC note updated and recommends vanc x 14 days outpatient blood cultures 4/4 bottles on 11/11 came up positive for Bacillus species, not anthracis Repeat blood cultures negative and echo with no evident of vegetation, he remains fever free and clinically appears well will continue vanc for another week to complete 14 days total course. Requested nurse outreach case manager to help with setting up vanc iv in the outpatient setting. /-remains hospitalized because there is no vehicle of IV abx administration with infusion services yet Suspect Neck Cellulitis Vs Inflammation due to injection site Patient is admitted to injecting fentanyl 2 weeks ago -CT Neck:There is a 2.2 cm focus of ill-defined subcutaneous infiltration at the dermal surface in the left supraclavicular soft tissues deep to the marker at the site of interest. This likely represents inflammation/cellulitis. Clinical correlation the required and clinical follow-up to resolution is recommended. There is no drainable fluid collection. The pharyngeal soft tissues are normal as imaged. Mildly enlarged mediastinal lymph nodes are seen in the superior mediastinum. -Continue antibiotics as above 4/2: added probiotics, check cdiff toxin IV drug Abuse Admits to using IV fentanyl Urine Drug screen: Positive for methadone, cocaine, THC Follows with [facility] for Methadone Prescriptions Encourage outpatient counseling/rehab for addiction Abdominal Pain/Nausea/Vomiting ? Secondary to drug abuse --ABD CT:Linear subcapsular density within segment 8 of the liver which extends for approximately 5 cm. In the absence of trauma, this favors a cleft. No p erihepatic fluid. A hepatic laceration could appear similar if recent trauma. Close clinical follow-up is recommended. Cirrhosis with mild splenomegaly suggestive of portal hypertension. No bowel obstruction. No bowel wall thickening. Normal appendix. -Drug screen: Positive for methadone, THC, cocaine -- Currently asymptomatic --Resolved and he is tolerating regular food. Mediastinal lymphadenopathy Splenomegaly Unclear etiology Incidental finding on CT --CTA:There is no evidence of pulmonary embolus in the main, lobar, or segmental pulmonary arteries. There is no airspace consolidation or pleural effusion. Mildly enlarged mediastinal and hilar lymph nodes are nonspecific. Splenomegaly. The liver is steatotic, and nodularity of the surface contour suggests morphologic change of cirrhosis. --Further work/eval as outpatient H/O PE CTA as above Continue Eliquis Chronic back pain, no new issues. Continue gabapentin Also on methadone--need to clarify dose with [facility]. Depression Posttraumatic stress disorder Anxiety on paroxetine and trazodone H/O Hep C/Cirrhosis S/P treatment for hepatitis C DVT Px: on Eliquis Code Status Full Code OK to dc home as soon as he can receive IV abx from Home Richa Shepherd DO [facility] Hospitalist Admission and Anticipated Discharge Date Admission Date: November 16, 2022 Subjective 42 yo M admitted with endocarditis Doing well, feels great Very eager for discharge. we are now just waiting on the abx delivery service to be set up Daughter's bday is tmrw and he is weighing leaving anyway. We discussed the pros and cons of this. Some loose stools with 10 BMs reported yesterday. No fevers, chills, or abd pain Review of Systems Review of Systems: All systems were reviewed and negative except as indicated above. Physical Exam Physical Exam: CONSTITUTIONAL: morbid obesity, vitals as above, generally well-appearing, NAD EYES: normal conjunctivae, no scleral icterus ENT: external ear and nose normal, MMM NECK: trachea midline, small wound site on left neck base that is closed and doesn't appear infected. Slightly discolored. Prior injection site. RESPIRATORY: clear to auscultation bilaterally, no crackles, rales or wheezes, normal respiratory effort CARDIOVASCULAR: regular rate and rhythm, S1 and 2 heard without murmurs, gallops or rubs, no JVD, no peripheral edema CHEST: inspection of chest was normal GASTROINTESTINAL: soft, nontender, ND, no guarding MUSCULOSKELETAL: strength 5/5 throughout, head is normocephalic and atraumatic, neck supple, normal palpation of chest wall without tenderness SKIN: warm and dry NEUROLOGIC: CN 2-12 grossly intact, no sensory deficit, normal cognition, normal speech, no tremor PSYCHIATRIC: alert cooperative and oriented to person, place and time. Euthymic mood, makes good eye contact, language grossly intact, recent and remote memory grossly intact. Results & Data Results & Data Vital Signs (Past 12 Hours) Vital Signs Temp Pulse Resp BP Pulse Ox O2 Del Method 11/24/22 07:43 36.7 C 73 18 121/78 96 Room Air 11/23/22 20:46 36.6 C 80 16 132/88 95 Room Air Medications Administered Current Inpatient Medications Acetaminophen (Acetaminophen 325 Mg Tab) 650 mg PO Q4H PRN PRN Reason: Pain or Fever Stop: 12/23/22 00:04 Last Admin: 11/23/22 00:11 Dose: 650 mg Apixaban (Apixaban 5 Mg Tablet) 5 mg PO BID [facility] Stop: 12/16/22 20:59 Last Admin: 11/23/22 20:48 Dose: 5 mg Famotidine (Famotidine 40 Mg Tablet) 40 mg PO HS [facility] Stop: 12/16/22 20:59 Last Admin: 11/23/22 20:48 Dose: 40 mg Gabapentin (Gabapentin 300 Mg Cap) 300 mg PO TID [facility] Stop: 12/16/22 20:59 Last Admin: 11/23/22 20:47 Dose: 300 mg Vancomycin HCl 1,750 mg/ (Sodium Chloride) 535 mls @ 200 mls/hr IV Q12H [facility]; Protocol Stop: 11/30/22 21:59 Last Infusion: 11/24/22 00:14 Dose: Infused Methadone HCl (Methadone Oral Soln 2 Mg/Ml) 130 mg PO DAILY [facility] Stop: 12/01/22 09:59 Last Admin: 11/23/22 08:23 Dose: 130 mg Non-Formulary Medication (Patient's Own Controlled Med 1) 1 each PO DAILY [facility] Stop: 12/01/22 09:59 Last Admin: 11/23/22 08:23 Dose: Not Given Paroxetine HCl (Paroxetine Hcl 20 Mg Tab) 40 mg PO DAILY [facility] Stop: 12/17/22 08:59 Last Admin: 11/23/22 08:23 Dose: 40 mg Polyethylene Glycol (Polyethylene (Miralax) 17 Gm Pack) 17 gm PO DAILY PRN PRN Reason: Constipation Stop: 12/16/22 16:59 Trazodone HCl (Trazodone Hcl 100 Mg Tab) 100 mg PO [facility] Stop: 12/16/22 20:59 Last Admin: 11/23/22 20:48 Dose: 50 mg
[2022-11-24] MEDS: METHADONE ORAL SOLN 2 MG/ML PO SCH (09:22)
[2022-11-24] MEDS: APIXABAN 5 MG TABLET PO SCH (09:23)
[2022-11-24] MEDS: GABAPENTIN 300 MG CAP PO SCH (09:23)
[2022-11-24] MEDS: PARoxetine HCL 20 MG TAB PO SCH (09:23)
[2022-11-24] MEDS ORDERED: VANCOMYCIN LEVEL ONE (09:30)
[2022-11-24 10:03] LABS: Creatinine Clr Calc Pharmacy 227.9 ml/min; Est GFR (African American) 146.8 ml/min; Est GFR (Non-African American) 126.6 ml/min
[2022-11-24] MEDS: PATIENT'S OWN CONTROLLED MED 1 PO SCH (10:25)
[2022-11-24] MEDS ORDERED: ADVANCED PROBIOTIC 1250 MG CAPSULE PO SCH (10:45)
[2022-11-24] MEDS ORDERED: DAPTOmycin 750 MG in SYRINGE 0 ML IV ONE (11:15)
--- NOTE | 2022-11-24 13:03 | Discharge Summary ---
Discharge Summary Date of Service November 24, 2022 Notes For Next Care Provider Medication Changes From Visit please seelatrice serrano med rec. Principal Dx & Hospital Course #1 = Principal Diagnosis (1) Bacteremia: Patient is a 42 yr old IVDU who presents with bacteremia. Bacillus Bacteremia -Outpatient Blood Culture grew bacillus, not anthracis --ECHO: Normal LV chamber size with mild concentric LVH. Normal LV systolic function, EF 60 to 65%. No segmental left ventricle wall motion abnormalities noted. Normal diastolic function. No significant valvular pathology. No valvular lesions consistent with endocarditis were visualized within the scope of the imaging modality. --Ultrasound of IV drug injection site:Redemonstration of a 12 x 11 x 7 mm ill- defined hypoechoic subcutaneous abnormality within the left supraclavicular soft tissues. This appears to abut the adjacent vascular structures. This could represent an area of scarring or a soft tissue lesion. Follow-up recommended. -Blood Cx from 11/13/22: 1: Bacillus species not anthracis -Blood Cx 11/16/22: No growth to date -Patient deferred hepatitis, HIV screen (Patient states that he was tested 9 months ago which was negative for HIV and hepatitis) -Continue vancomycin--needs 7-day course of antibiotic therapy from first negative blood culture cefepime discontinued [employer] ID, bacillus may be related to translocation of gut flores with ongoing GI symptoms vs contaminant vs true infection Continue IV vancomycin to complete 7-day course-->amended through text message to this provider that EPIC note updated and recommends vanc x 14 days outpatient blood cultures 4/4 bottles on 11/11 came up positive for Bacillus species, not anthracis Repeat blood cultures negative and echo with no evident of vegetation, he remains fever free and clinically appears well will continue vanc for another week to complete 14 days total course. Requested casework specialist to help with setting up vanc iv in the outpatient setting. 11/24-remains hospitalized because there is no vehicle of IV abx administration with infusion services yet changed to daptomycin which is a once daily dosing to complete the course. PIV was removed at time of dischargee and he will continue to receive his daily dose through [facility]. Suspect Neck Cellulitis Vs Inflammation due to injection site Patient is admitted to injecting fentanyl 2 weeks ago -CT Neck:There is a 2.2 cm focus of ill-defined subcutaneous infiltration at the dermal surface in the left supraclavicular soft tissues deep to the marker at the site of interest. This likely represents inflammation/cellulitis. Clinical correlation the required and clinical follow-up to resolution is recommended. There is no drainable fluid collection. The pharyngeal soft tissues are normal as imaged. Mildly enlarged mediastinal lymph nodes are seen in the superior mediastinum. -Continue antibiotics as above 11/24: added probiotics, check cdiff toxin Cellulitis was resolved at time of discharge IV drug Abuse Admits to using IV fentanyl Urine Drug screen: Positive for methadone, cocaine, THC Follows with [facility] for Methadone Prescriptions Encourage outpatient counseling/rehab for addiction Abdominal Pain/Nausea/Vomiting ? Secondary to drug abuse --ABD CT:Linear subcapsular density within segment 8 of the liver which extends for approximately 5 cm. In the absence of trauma, this favors a cleft. No perihepatic fluid. A hepatic laceration could appear similar if recent trauma. Close clinical follow-up is recommended. Cirrhosis with mild splenomegaly sug gestive of portal hypertension. No bowel obstruction. No bowel wall thickening. Normal appendix. -Drug screen: Positive for methadone, THC, cocaine -- Currently asymptomatic --Resolved and he is tolerating regular food. Mediastinal lymphadenopathy Splenomegaly Unclear etiology Incidental finding on CT --CTA:There is no evidence of pulmonary embolus in the main, lobar, or segmental pulmonary arteries. There is no airspace consolidation or pleural effusion. Mildly enlarged mediastinal and hilar lymph nodes are nonspecific. Splenomegaly. The liver is steatotic, and nodularity of the surface contour suggests morphologic change of cirrhosis. --Further work/eval as outpatient H/O PE CTA as above Continue Eliquis Chronic back pain, no new issues. Continue gabapentin Also on methadone--need to clarify dose with [facility]. Depression Posttraumatic stress disorder Anxiety on paroxetine and trazodone H/O Hep C/Cirrhosis S/P treatment for hepatitis C DVT Px: on Eliquis He was discharged home in stable condition with close primary care followup recommended. [facility] Updated Medication List Medication Instructions Recorded Confirmed Type methadone 40 mg soluble tablet 130 mg PO DAILY 11/13/22 11/30/22 History apixaban 5 mg tablet (Eliquis) 5 mg PO BID 11/16/22 11/30/22 History famotidine 40 mg tablet 40 mg PO HS 11/16/22 11/30/22 History gabapentin 300 mg capsule 300 mg PO TID 11/16/22 11/30/22 History paroxetine HCl 40 mg tablet 40 mg PO DAILY 11/16/22 11/30/22 History trazodone 100 mg tablet 100 mg PO HS 11/16/22 11/30/22 History L.acidop,casei,lactis,rham-B.lact,hugh 2 cap PO DAILY #14 caps 11/24/22 11/30/22 Rx 625 mg (10 billion cell) capsule (Advanced Probiotic) Hospital Stay Data Consultations 11/16/22 14:10 ED Decision to Admit Stat 11/16/22 17:00 Consult Infectious Diseases Routine Diagnostic Imagining Performed 11/16/22 11:45 CT angio chest PE protocol Stat CT head venogram w con Stat CT head/brain wo con Stat CT soft tissue neck w con Stat 11/18/22 17:29 US Neck [US soft tissue head and neck] Routine Pending Results Patient Have Any Pending Studies at Discharge: No Discharge Instructions Given to Patient (Per Discharging Provider) Please take all medications as instructed on discharge list below. You were given a prescription for probiotics, however, if easier for you, these can be picked up over the counter. You will need an additional 6 days of daptomycin, which will be given through the [facility] ([facility]) at [facility]. This will be a total of 14 days of antibiotics to treat your infection. Please follow up with your primary care provider as scheduled to ensure you don't need any further workup or treatment since being discharged from the hospital. On the CT scan performed this admission, you were found to have enlarged lymph nodes in your chest which may need repeat imaging in the future. Additionally, your liver was found to be nodular which suggests a possible diagnosis of cirrhosis. Further workup to confirm this would be needed as outpatient. Please discuss this further with your primary care provider when you see them in followup. Your spleen was enlarged on imaging. It was a pleasure taking care of you! Please call if you have any questions or problems. You can reach a [facility] hospitalist on duty at [facility] 24 hours a day by calling [phone]. Take care of yourself. Sravanthi Shepherd, DO [facility] Hospitalist Total Time Total Time Spent Total Time Spent (In Minutes): 60
== END 2022-11-24 13:41 | disposition home or self-care (01) | DRG 872 ==
LOC: ED 10:36 → 2E 15:23 → SUATTDRO 15:23 → 2E 16:28 → 3N 11-19 21:42